=== PATIENT | male | born 1965 | race African-American/Black ===

== ENCOUNTER 2016-04-17 10:15 | Inpatient (IN) | payer OTHER ==
[2016-04-17 11:49] VITALS: BMI 26.8
--- NOTE | 2016-04-17 12:57 | HP ---
CIWA Score - CIWA Score Nausea/Vomitin-Mild Nausea/No Vomiting Muscle Tremors: 4-Moderate,w/Arms Extend Anxiety: 4-Mod. Anxious/Guarded Agitation: 4-Moderately Restless Paroxysmal Sweats: 3 Orientation: 0-Oriented Tacttile Disturbances: 0-None Auditory Disturbances: 0-None Visual Disturbances: 0-None Headache: 0-None Present CIWA-Ar Total Score: 16 Admission ROS BHS - HPI Chief Complaint: I am here to detox then go to rehab. Allergies/Adverse Reactions: Allergies Allergy/AdvReac Type Severity Reaction Status Date / Time Penicillins Allergy Intermediate Hives Verified 12/17/12 16:52 History of Present Illness: pt is a 50yr old male with a history of alcohol and crack/cocaine dependence seeking detox for treatment. Exam Limitations: No Limitations - Ebola screening Have you traveled outside of the country in the last 21 days: No Have you had contact with anyone from an Ebola affected area: No Have you been sick,other than usual withdrawal symptoms: No Do you have a fever: No - Review of Systems Constitutional: Chills, Diaphoresis, Night Sweats, Changes in sleep EENT: reports: Tearing Respiratory: reports: No Symptoms reported Cardiac: reports: No Symptoms Reported GI: reports: Poor Appetite, Poor Fluid Intake : reports: No Symptoms Reported Musculoskeletal: reports: No Symptoms Reported Integumentary: reports: Flushing, Sweating Neuro: reports: Headache, Tingling, Tremors Endocrine: reports: Excessive Sweating, Flushing, Intolerance to Cold, Intolerance to Heat Hematology: reports: No Symptoms Reported Psychiatric: reports: No Sypmtoms Reported, Judgement Intact, Mood/Affect Appropiate, Orientated x3, Agitated, Anxious Other Systems: Reviewed and Negative Patient History - Patient Medical History Hx Anemia: No Hx Asthma: Yes Hx Chronic Obstructive Pulmonary Disease (COPD): No Hx Cancer: No Hx Cardiac Disorders: No Hx Congestive Heart Failure: No Hx Hypertension: Yes Hx Hypercholesterolemia: No Hx Pacemaker: No HX Cerebrovascular Accident: No Hx Seizures: No Hx Dementia: No Hx Diabetes: No Hx Gastrointestinal Disorders: No Hx Liver Disease: No Hx Genitourinary Disorders: No Hx Sexually Transmitted Disorders: No Hx Renal Disease (ESRD): No Hx Thyroid Disease: No Hx Human Immunodeficiency Virus (HIV): No Hx Hepatitis C: No Hx Depression: No Hx Suicide Attempt: Yes (jumped off the roof in 1982) Hx Bipolar Disorder: No Hx Schizophrenia: No - Patient Surgical History Past Surgical History: Yes Hx Neurologic Surgery: No Hx Cataract Extraction: No Hx Cardiac Surgery: No Hx Lung Surgery: No Hx Breast Surgery: No Hx Breast Biopsy: No Hx Abdominal Surgery: No Hx Appendectomy: No Hx Cholecystectomy: No Hx Genitourinary Surgery: No Hx Section: No Hx Orthopedic Surgery: Yes (left middle mcp jt surgery ) Other Surgical History: Left Hand Surgery 10 yrs. ago Anesthesia Reaction: No - PPD History Previous Implant?: Yes Documented Results: Negative w/o proof Implanted On Prior [facility] Admission?: Yes PPD to be Administered?: Yes - Reproductive History Patient is a Female of Child Bearing Age (11 -55 yrs old): No - Smoking Cessation Smoking history: Current every day smoker Have you smoked in the past 12 months: Yes Aproximately how many cigarettes per day: 10 Cigars Per Day: 0 Hx Chewing Tobacco Use: No Initiated information on smoking cessation: Yes 'Breaking Loose' booklet given: 04/17/16 - Substance & Tx. History Hx Alcohol Use: Yes Hx Substance Use: Yes Substance Use Type: Alcohol, Cocaine Hx Substance Use Treatment: Yes - Substances Abused Crack Route: Smoking Frequency: 1-2 times per week Amount used: $50 Age of first use: 22 Date of Last Use: 04/15/16 Alcohol-vodka Route: Oral Frequency: Daily Amount used: 3 pts. Age of first use: 19 Date of Last Use: 04/22/16 Family Disease History - Family Disease History Family Disease History: Diabetes: Father, Mother Admission Physical Exam S - Vital Signs Vital Signs: Vital Signs - 24 hr 04/17/16 11:47 Temperature 96.9 F L Pulse Rate 80 Respiratory 18 Rate Blood Pressure 145/76 - Physical General Appearance: Yes: Appropriately Dressed, Mild Distress, Tremorous, Irritable, Sweating, Anxious HEENTM: Yes: Hearing grossly Normal, Normal Voice, Nasal Congestion Respiratory: Yes: Lungs Clear, Normal Breath Sounds, No Respiratory Distress Neck: Yes: No masses,lesions,Nodules Breast: Yes: Within Normal Limits Cardiology: Yes: Regular Rhythm, Regular Rate, S1, S2 Abdominal: Yes: Normal Bowel Sounds, Non Tender, Soft Genitourinary: Yes: Within Normal Limits Back: Yes: Normal Inspection Musculoskeletal: Yes: full range of Motion Extremities: Yes: Normal Capillary Refill, Normal Inspection, Tremors Neurological: Yes: Fully Oriented, Alert, Normal Response Integumentary: Yes: Normal Color, Diaphoresis Lymphatic: Yes: Within Normal Limits - Diagnostic (1) Alcohol dependence with uncomplicated withdrawal Current Visit: Yes Status: Chronic (2) Hypertension Current Visit: Yes Status: Chronic Qualifiers: Hypertension type: essential hypertension Qualified Code(s): I10 - Essential (primary) hypertension (3) Nicotine dependence Current Visit: Yes Status: Chronic Qualifiers: Nicotine product type: cigarettes Substance use status: uncomplicated Qualified Code(s): F17.210 - Nicotine dependence, cigarettes, uncomplicated (4) Asthma Current Visit: Yes Status: Chronic (5) Cocaine dependence Current Visit: Yes Status: Chronic Cleared for Admission [facility] - Detox or Rehab [facility] Level of Care: Medically Managed Detox Regimen/Protocol: Librium [facility] Breath Alcohol Content Breath Alcohol Content: 0 Urine Drug Screen - Results Drug Screen Negative: No Urine Drug Screen Results: THC-Marijuana, YVON-Cocaine, BZO-Benzodiazepines
[2016-04-17] MEDS ORDERED: MAGNESIUM CITRATE 300 ML BOTTLE PO PRN (13:02)
[2016-04-17] MEDS ORDERED: ACETAMINOPHEN 325 MG TABLET (FP) PO PRN (13:02)
[2016-04-17] MEDS ORDERED: MENTHOL/PHENOL 1 EACH UD MM PRN (13:02)
[2016-04-17] MEDS ORDERED: guaiFENesin/D-METHORPHAN HB 10 ML UNIT-DOSE CUPS PO PRN (13:02)
[2016-04-17] MEDS ORDERED: LOPERAMIDE HCL 2 MG CAPSULE PO PRN (13:02)
[2016-04-17] MEDS ORDERED: MAG HYDROX/AL HYDROX/SIMETH 30 ML UNIT-DOSE CUP PO PRN (13:02)
[2016-04-17] MEDS ORDERED: NICOTINE POLACRILEX 4 MG GUM BUC PRN (13:02)
[2016-04-17] MEDS ORDERED: IBUPROFEN 400 MG TABLET (FP) PO PRN (13:02)
[2016-04-17] MEDS ORDERED: MAGNESIUM HYDROX 2400MG/30ML ORAL SUSPENSION 30 ML CUP PO PRN (13:02)
[2016-04-17] MEDS ORDERED: chlordiazePOXIDE HCL 25 MG CAPSULE PO ONE (13:02)
[2016-04-17] MEDS ORDERED: hydrOXYzine PAMOATE 50 MG CAPSULE (FP) PO PRN (13:02)
[2016-04-17] MEDS ORDERED: chlordiazePOXIDE HCL 25 MG CAPSULE PO PRN (13:02)
[2016-04-17] MEDS ORDERED: P-EPHED 60MG/TRIPROLIDI 2.5MG TABLET PO PRN (13:02)
[2016-04-17] MEDS ORDERED: ALBUTEROL SO4 6.7 GM HFA INHALER IH PRN (13:04)
[2016-04-17] MEDS: chlordiazePOXIDE HCL 25 MG CAPSULE PO SCH ×2 (17:11→22:24)
[2016-04-17 17:46] LABS: URINE APPEARANCE CLEAR; URINE BILIRUBIN NEGATIVE (NEGATIVE); URINE BLOOD NEGATIVE (NEGATIVE); URINE COLOR YELLOW; URINE GLUCOSE (UA) NEGATIVE (NEGATIVE); URINE KETONE NEGATIVE (NEGATIVE); URINE NITRITE NEGATIVE (NEGATIVE); URINE PROTEIN NEGATIVE (NEGATIVE); URINE UROBILINOGEN 2.0 E.U/dl E.U./dl (0.2-1.0)
[2016-04-17 17:59] LABS: URINE LEUK ESTERASE TRACE (NEGATIVE)
[2016-04-17 18:16] LABS: URINE MUCUS RARE; URINE RBC <1 /hpf (0-3); URINE WBC 4 /hpf (3-5)
[2016-04-17] MEDS: THIAMINE HCL 100 MG TABLET (FP) PO SCH (22:24)
[2016-04-17] MEDS: diphenhydrAMINE HCL 50 MG CAPSULE PO PRN (22:24)
[2016-04-18] MEDS: chlordiazePOXIDE HCL 25 MG CAPSULE PO SCH ×4 (05:48→22:38)
[2016-04-18 10:45] LABS: MCH 30.3 pg (25.7-33.7); MCHC 32.3 g/dl (32.0-35.9); MEAN CELL VOLUME 93.6 fl (80-96); MEAN PLT VOLUME 9.3 fl (7.5-11.1); PLATELET COUNT 233 K/MM3 (134-434); RDW 14.2 % (11.9-15.9); WHITE BLOOD COUNT 5.3 K/mm3 (4.0-10.0)
[2016-04-18 10:47] LABS: URINE APPEARANCE SLCLOUDY; URINE BILIRUBIN NEGATIVE (NEGATIVE); URINE BLOOD NEGATIVE (NEGATIVE); URINE COLOR LTYELLOW; URINE GLUCOSE (UA) NEGATIVE (NEGATIVE); URINE KETONE NEGATIVE (NEGATIVE); URINE LEUK ESTERASE NEGATIVE (NEGATIVE); URINE NITRITE NEGATIVE (NEGATIVE); URINE PROTEIN NEGATIVE (NEGATIVE); URINE UROBILINOGEN NEGATIVE E.U./dl (0.2-1.0)
[2016-04-18 10:52] LABS: ALBUMIN 3.5 g/dl (3.4-5.0); BILIRUBIN,TOTAL 0.3 mg/dL (0.2-1.0); CALCIUM 8.7 mg/dL (8.5-10.1); CREATININE 1.4 mg/dL (0.7-1.3)
[2016-04-18] MEDS: PRENATAL VITAMINS W/ FOLIC ACID TABLET (FP) PO SCH (11:01)
[2016-04-18] MEDS: NICOTINE 21 MG/24 HOURS TOPICAL PATCH TD SCH (11:02)
[2016-04-18] MEDS: ASPIRIN 81 MG CHEWABLE TABLETS PO SCH (11:02)
[2016-04-18] MEDS: LISINOPRIL 5 MG TABLET (FP) PO SCH (11:40)
--- NOTE | 2016-04-18 12:06 | PN ---
[facility] CIWA - CIWA Score Nausea/Vomitin Muscle Tremors: 3 Anxiety: 3 Agitation: 2 Paroxysmal Sweats: 1-Minimal Palms Moist Orientation: 0-Oriented Tacttile Disturbances: 1-Very Mild Itch/Numbness Auditory Disturbances: 1-Very Mild Visual Disturbances: 1-Very Mild Sensitivity Headache: 2-Mild CIWA-Ar Total Score: 17 BHS Progress Note (SOAP) Subjective: ALERT,IRRITABLE,ANXIOUS,INTERRUPTED SLEEP,TREMOR Objective: 04/18/16 12:04 Vital Signs Temperature 98.2 F 04/18/16 10:02 Pulse Rate 82 04/18/16 10:02 Respiratory Rate 20 04/18/16 10:02 Blood Pressure 123/84 04/18/16 10:02 O2 Sat by Pulse Oximetry (%) EKG NSR INVERTED T IN V3,V4 NO CHEST PAIN,NO SOB,NO DIZZINESS Laboratory Last Values WBC 5.3 K/mm3 (4.0-10.0) 04/18/16 06:00 RBC 4.33 M/mm3 (4.00-5.60) 04/18/16 06:00 Hgb 13.1 GM/dL (11.7-16.9) 04/18/16 06:00 Hct 40.5 % (35.4-49) 04/18/16 06:00 MCV 93.6 fl (80-96) 04/18/16 06:00 MCHC 32.3 g/dl (32.0-35.9) 04/18/16 06:00 RDW 14.2 % (11.9-15.9) 04/18/16 06:00 Plt Count 233 K/MM3 (134-434) 04/18/16 06:00 MPV 9.3 fl (7.5-11.1) 04/18/16 06:00 Sodium 141 mmol/L (136-145) 04/18/16 06:00 Potassium 3.9 mmol/L (3.5-5.1) 04/18/16 06:00 Chloride 105 mmol/L (98-107) 04/18/16 06:00 Carbon Dioxide 24 mmol/L (21-32) 04/18/16 06:00 Anion Gap 12 (8-16) 04/18/16 06:00 BUN 18 mg/dL (7-18) 04/18/16 06:00 Creatinine 1.4 mg/dL (0.7-1.3) H 04/18/16 06:00 Creat Clearance w eGFR 53.86 (>60) 04/18/16 06:00 Random Glucose 181 mg/dL (74-106) H D 04/18/16 06:00 Calcium 8.7 mg/dL (8.5-10.1) 04/18/16 06:00 Total Bilirubin 0.3 mg/dL (0.2-1.0) D 04/18/16 06:00 AST 22 U/L (15-37) D 04/18/16 06:00 ALT 30 U/L (12-78) D 04/18/16 06:00 Alkaline Phosphatase 81 U/L (45-117) D 04/18/16 06:00 Total Protein 7.0 g/dl (6.4-8.2) 04/18/16 06:00 Albumin 3.5 g/dl (3.4-5.0) 04/18/16 06:00 Urine Color Ltyellow 04/18/16 08:40 Urine Appearance Slcloudy 04/18/16 08:40 Urine pH 7.0 (5.0-8.0) D 04/18/16 08:40 Ur Specific [place] 1.014 (1.001-1.035) 04/18/16 08:40 Urine Protein Negative (NEGATIVE) 04/18/16 08:40 Urine Glucose (UA) Negative (NEGATIVE) 04/18/16 08:40 Urine Ketones Negative (NEGATIVE) 04/18/16 08:40 Urine Blood Negative (NEGATIVE) 04/18/16 08:40 Urine Nitrite Negative (NEGATIVE) 04/18/16 08:40 Urine Bilirubin Negative (NEGATIVE) 04/18/16 08:40 Urine Urobilinogen Negative E.U./dl (0.2-1.0) 04/18/16 08:40 Ur Leukocyte Esterase Negative (NEGATIVE) 04/18/16 08:40 Urine RBC <1 /hpf (0-3) 04/17/16 14:00 Urine WBC 4 /hpf (3-5) 04/17/16 14:00 Ur Epithelial Cells Rare /hpf (FEW) 04/17/16 14:00 Urine Mucus Rare 04/17/16 14:00 Assessment: 04/18/16 12:05 WITHDRAWAL SYMPTOM 04/18/16 12:07 Plan: CONTINUE DETOX,INITIAL GLUCOSE 181,BGM MONITORING
[2016-04-18 14:12] LABS: HIV 1 & 2 AB NEGATIVE; HIV 1 AGp24 NEGATIVE
--- NOTE | 2016-04-18 17:55 | CONSULT ---
[facility] Psychiatric Consult - Data Date of interview: 04/18/16 Admission source: [facility] Identifying data: Readmission to [facility] for this 50 y/o AA male seeking detox treatment on for alcohol and cocaine dependence.Patient is ,a father of three,homeless,unemployed and supported on SSI benefits. Substance Abuse History: - Smoking Cessation. Smoking history: Current every day smoker. Have you smoked in the past 12 months: Yes. Aproximately how many cigarettes per day: 10. Cigars Per Day: 0. Hx Chewing Tobacco Use: No. Initiated information on smoking cessation: Yes. 'Breaking Loose' booklet given : 04/17/16. - Substance & Tx. History. Hx Alcohol Use: Yes. Hx Substance Use : Yes. Substance Use Type: Alcohol, Cocaine. Hx Substance Use Treatment: Yes. - Substances Abused. Crack. Route: Smoking. Frequency: 1-2 times per week. Amount used: $50. Age of first use: 22. Date of Last Use: 04/15/16. * * Alcohol-vodka. Route: Oral. Frequency: Daily. Amount used: 3 pts. Age of first use: 19. Date of Last Use: 04/22/16. Confirmed by the patient in this interview. Medical History: Hypertension,bronchial asthma and a history of orthosurgery ( fracture of left middle finger). Psychiatric History: Patient admits to an extensive history of psychiatric illness.He reports multiple psychiatric hospitalizations,including stays at the [facility].Mr Beaver is also known to [facility].He gets his psychiatric outpatient services at [facility].Medications : seroquel 300 mg po hs + trazodone 100 mg po hs.Non compliant with medications as per self-report (has not taken medications for more than one month) .Diagnosed with Schizophrenia,paranoid type.Noted report of of a suicide attempt (jump off a roof) in 1982. Physical/Sexual Abuse/Trauma History: Patient denies. Additional Comment: Urine Drug Screen Results: THC-Marijuana, YVON-Cocaine, BZO- Benzodiazepines.Noted. Mental Status Exam - Mental Status Exam Alert and Oriented to: Time, Place, Person Cognitive Function: Good Mood: Hopeful Affect: Normal Range Patient Behavior: Appropriate, Cooperative Speech Pattern: Clear Voice Loudness: Normal Thought Process: Goal Oriented Thought Disorder: Not Present Hallucinations: Denies Suicidal Ideation: Denies Homicidal Ideation: Denies Insight/Judgement: Poor Sleep: Poorly, Difficulty falling asleep Appetite: Good Muscle strength/Tone: Normal Gait/Station: Normal Psychiatric Findings - Problem List ([place] 1, 2,3) (1) Alcohol dependence with uncomplicated withdrawal Current Visit: Yes Status: Acute (2) Cocaine dependence Current Visit: Yes Status: Acute (3) Nicotine dependence Current Visit: Yes Status: Acute Qualifiers: Nicotine product type: cigarettes Substance use status: uncomplicated Qualified Code(s): F17.210 - Nicotine dependence, cigarettes, uncomplicated (4) Schizophrenia, paranoid type Current Visit: Yes Status: Chronic (5) Asthma Current Visit: Yes Status: Chronic (6) Hypertension Current Visit: Yes Status: Chronic Qualifiers: Hypertension type: essential hypertension Qualified Code(s): I10 - Essential (primary) hypertension (7) Insomnia Current Visit: Yes Status: Chronic - Initial Treatment Plan Initial Treatment Plan: Psychoeducation.Detoxification.seroquel 200 mg po hs + trazodone 50 mg po hs.Side effects/benefits discussed with the patient.Made aware of the risk of priapism (trazodone).Instructed to alert MD/RN if painful/ prolonged erection.Patient agrees with this careplan.Observation.
[2016-04-18] MEDS: THIAMINE HCL 100 MG TABLET (FP) PO SCH (22:38)
[2016-04-18] MEDS: QUEtiapine FUMARATE 200 MG TABLET PO SCH (22:38)
[2016-04-19] MEDS: chlordiazePOXIDE HCL 25 MG CAPSULE PO SCH ×2 (05:51→10:45)
[2016-04-19] MEDS: ASPIRIN 81 MG CHEWABLE TABLETS PO SCH (10:44)
[2016-04-19] MEDS: LISINOPRIL 5 MG TABLET (FP) PO SCH (10:44)
[2016-04-19] MEDS: PRENATAL VITAMINS W/ FOLIC ACID TABLET (FP) PO SCH (10:44)
[2016-04-19] MEDS: NICOTINE 21 MG/24 HOURS TOPICAL PATCH TD SCH (10:45)
--- NOTE | 2016-04-19 11:30 | PN ---
[facility] CIWA - CIWA Score Nausea/Vomitin Muscle Tremors: 3 Anxiety: 3 Agitation: 2 Paroxysmal Sweats: 1-Minimal Palms Moist Orientation: 0-Oriented Tacttile Disturbances: 1-Very Mild Itch/Numbness Auditory Disturbances: 1-Very Mild Visual Disturbances: 1-Very Mild Sensitivity Headache: 2-Mild CIWA-Ar Total Score: 17 BHS Progress Note (SOAP) Subjective: ALERT,IRRITABLE,ANXIOUS,INTERRUPTED SLEEP,TREMOR Objective: 04/19/16 11:28 Vital Signs Temperature 97.3 F L 04/19/16 10:41 Pulse Rate 105 H 04/19/16 10:41 Respiratory Rate 18 04/19/16 10:41 Blood Pressure 141/100 04/19/16 10:41 O2 Sat by Pulse Oximetry (%) 04/19/16 11:29 Laboratory Last Values WBC 5.3 K/mm3 (4.0-10.0) 04/18/16 06:00 RBC 4.33 M/mm3 (4.00-5.60) 04/18/16 06:00 Hgb 13.1 GM/dL (11.7-16.9) 04/18/16 06:00 Hct 40.5 % (35.4-49) 04/18/16 06:00 MCV 93.6 fl (80-96) 04/18/16 06:00 MCHC 32.3 g/dl (32.0-35.9) 04/18/16 06:00 RDW 14.2 % (11.9-15.9) 04/18/16 06:00 Plt Count 233 K/MM3 (134-434) 04/18/16 06:00 MPV 9.3 fl (7.5-11.1) 04/18/16 06:00 Sodium 141 mmol/L (136-145) 04/18/16 06:00 Potassium 3.9 mmol/L (3.5-5.1) 04/18/16 06:00 Chloride 105 mmol/L (98-107) 04/18/16 06:00 Carbon Dioxide 24 mmol/L (21-32) 04/18/16 06:00 Anion Gap 12 (8-16) 04/18/16 06:00 BUN 18 mg/dL (7-18) 04/18/16 06:00 Creatinine 1.4 mg/dL (0.7-1.3) H 04/18/16 06:00 Creat Clearance w eGFR 53.86 (>60) 04/18/16 06:00 POC Glucometer 111 UNITS (()) 04/19/16 06:55 Random Glucose 181 mg/dL (74-106) H D 04/18/16 06:00 Calcium 8.7 mg/dL (8.5-10.1) 04/18/16 06:00 Total Bilirubin 0.3 mg/dL (0.2-1.0) D 04/18/16 06:00 AST 22 U/L (15-37) D 04/18/16 06:00 ALT 30 U/L (12-78) D 04/18/16 06:00 Alkaline Phosphatase 81 U/L (45-117) D 04/18/16 06:00 Total Protein 7.0 g/dl (6.4-8.2) 04/18/16 06:00 Albumin 3.5 g/dl (3.4-5.0) 04/18/16 06:00 Urine Color Ltyellow 04/18/16 08:40 Urine Appearance Slcloudy 04/18/16 08:40 Urine pH 7.0 (5.0-8.0) D 04/18/16 08:40 Ur Specific [place] 1.014 (1.001-1.035) 04/18/16 08:40 Urine Protein Negative (NEGATIVE) 04/18/16 08:40 Urine Glucose (UA) Negative (NEGATIVE) 04/18/16 08:40 Urine Ketones Negative (NEGATIVE) 04/18/16 08:40 Urine Blood Negative (NEGATIVE) 04/18/16 08:40 Urine Nitrite Negative (NEGATIVE) 04/18/16 08:40 Urine Bilirubin Negative (NEGATIVE) 04/18/16 08:40 Urine Urobilinogen Negative E.U./dl (0.2-1.0) 04/18/16 08:40 Ur Leukocyte Esterase Negative (NEGATIVE) 04/18/16 08:40 Urine RBC <1 /hpf (0-3) 04/17/16 14:00 Urine WBC 4 /hpf (3-5) 04/17/16 14:00 Ur Epithelial Cells Rare /hpf (FEW) 04/17/16 14:00 Urine Mucus Rare 04/17/16 14:00 RPR Titer Nonreactive (NONREACTIVE) 04/18/16 06:00 HIV 1&2 Antibody Screen Negative 04/17/16 12:00 HIV P24 Antigen Negative 04/17/16 12:00 Assessment: 04/19/16 11:29 WITHDRAWAL SYMPTOM Plan: CONTINUE DETOX
[2016-04-19] MEDS: chlordiazePOXIDE 5 MG CAPSULE PO SCH ×2 (18:00→22:50)
[2016-04-19] MEDS: THIAMINE HCL 100 MG TABLET (FP) PO SCH (22:50)
[2016-04-19] MEDS: QUEtiapine FUMARATE 200 MG TABLET PO SCH (22:50)
[2016-04-20] MEDS: chlordiazePOXIDE 5 MG CAPSULE PO SCH ×2 (06:00→10:12)
[2016-04-20] MEDS: NICOTINE 21 MG/24 HOURS TOPICAL PATCH TD SCH (10:11)
[2016-04-20] MEDS: PRENATAL VITAMINS W/ FOLIC ACID TABLET (FP) PO SCH (10:12)
[2016-04-20] MEDS: LISINOPRIL 5 MG TABLET (FP) PO SCH (10:12)
[2016-04-20] MEDS: ASPIRIN 81 MG CHEWABLE TABLETS PO SCH (10:12)
--- NOTE | 2016-04-20 10:59 | PN ---
S Progress Note (SOAP) Subjective: ALERT,IRRITABLE,ANXIOUS,INTERRUPTED SLEEP Objective: 04/20/16 10:57 Vital Signs Temperature 97 F L 04/20/16 10:15 Pulse Rate 88 04/20/16 10:15 Respiratory Rate 16 04/20/16 10:15 Blood Pressure 144/63 04/20/16 10:15 O2 Sat by Pulse Oximetry (%) Assessment: WITHDRAWAL SYMPTOM Plan: CONTINUE DETOX,DISCHARGE IN AM
--- NOTE | 2016-04-20 14:06 | EKG ---
Test Reason : Blood Pressure : / mmHG Vent. Rate : 068 BPM Atrial Rate : 068 BPM P-R Int : 182 ms QRS Dur : 094 ms QT Int : 404 ms P-R-T Axes : 051 038 051 degrees QTc Int : 429 ms NORMAL SINUS RHYTHM POSSIBLE LEFT ATRIAL ENLARGEMENT NONSPECIFIC T WAVE ABNORMALITY ABNORMAL ECG NO PREVIOUS ECGS AVAILABLE Confirmed by LELAND GRIMES MD ([id number]) on 04/20/2016 2:05:34 PM Referred By: Bryan Sanches Confirmed By:LELAND GRIMES MD
[2016-04-20] MEDS: chlordiazePOXIDE HCL 10 MG CAPSULE PO SCH ×2 (17:21→22:21)
[2016-04-20] MEDS: QUEtiapine FUMARATE 200 MG TABLET PO SCH (22:21)
[2016-04-20] MEDS: THIAMINE HCL 100 MG TABLET (FP) PO SCH (22:21)
[2016-04-20] MEDS: diphenhydrAMINE HCL 50 MG CAPSULE PO PRN (22:21)
[2016-04-21] MEDS: chlordiazePOXIDE HCL 10 MG CAPSULE PO SCH (06:20)
[2016-04-21 06:46] VITALS: BP 96/60; PULSE 73; TEMP 97.7
--- NOTE | 2016-04-21 08:56 | PN ---
S Progress Note (SOAP) Subjective: alert,no complaint Objective: 04/21/16 08:55 Vital Signs Temperature 97.7 F 04/21/16 06:46 Pulse Rate 73 04/21/16 06:46 Respiratory Rate 18 04/21/16 06:46 Blood Pressure 96/60 04/21/16 06:46 O2 Sat by Pulse Oximetry (%) Assessment: 04/21/16 08:55 detox completed,no withdrawal symptom Plan: discharge today,follow up with after care program as arrangement
--- NOTE | 2016-04-21 08:57 | DS ---
[facility] Detox Discharge Summary Admission Date: 04/17/16 Discharge Date: 04/21/16 - History Present History: Alcohol Dependence, Cocaine Dependence Additional Comments: follow up with after [facility] program as arrangement and pmd for medical problem Pertinent Past History: asthma hypertension - Physical Exam Results Vital Signs: Vital Signs Temperature 97.7 F 04/21/16 06:46 Pulse Rate 73 04/21/16 06:46 Respiratory Rate 18 04/21/16 06:46 Blood Pressure 96/60 04/21/16 06:46 O2 Sat by Pulse Oximetry (%) Pertinent Admission Physical Exam Findings: withdrawal symptom - Treatment Hospital Course: Detox Protocol Followed, Detoxed Safely, Responded well, Discharged Condition Good, Rehab Referral Accepted Patient has Accepted a [facility] Referral [facility] - Medication Discharge Medications: Ambulatory Orders Aspirin [ASA -] 81 mg PO DAILY #30 tab.chew 12/21/12 Lisinopril [Prinivil] 5 mg PO DAILY #30 tablet 12/21/12 Albuterol Sulfate [Proventil HFA Inhaler -] 2 inh PO Q4H PRN 04/17/16 Quetiapine Fumarate [Seroquel -] 200 mg PO HS #30 tab 04/18/16 - AMA Did Patient Leave Against Medical Advice: No
== END 2016-04-21 09:12 | disposition home or self-care (01) | DRG 774 ==
LOC: YASAS 10:15 → Y6N 13:05
PROVIDERS: ADMIT Internal Medicine; ATTEND Internal Medicine
PROC: HZ2ZZZZ Detoxification Services for Substance Abuse Treatment (ICD-10-PCS; principal; 2016-04-21)
DX: F10.230 Alcohol dependence with withdrawal, uncomplicated (principal); F14.20 Cocaine dependence, uncomplicated; F17.210 Nicotine dependence, cigarettes, uncomplicated; F20.0 Paranoid schizophrenia; G47.00 Insomnia, unspecified; I10 Essential (primary) hypertension; J45.909 Unspecified asthma, uncomplicated
CPT/HCPCS: 36415; 71020-TC; 80053; 81003; 81015; 85027; 86593; 87389; 93005; 93010

== ENCOUNTER 2016-10-02 10:00 | Inpatient (IN) | payer OTHER ==
[2016-10-02 13:55] VITALS: BMI 25.7
--- NOTE | 2016-10-02 16:31 | HP ---
Admission [facility] Chief Complaint: i am here for rehab from alcohol,cocaine and marijuana Allergies/Adverse Reactions: Allergies Allergy/AdvReac Type Severity Reaction Status Date / Time Penicillins Allergy Intermediate Hives Verified 10/02/16 15:15 mri dye Allergy Uncoded 10/02/16 16:27 History of Present Illness: this 51 years old male with alcohol,cocaine and marijuana dependence,seeking rehab,[facility] 09/[facility]16 to 10/02/16 weight loss nicotine dependence paranoid schizophrenia and depression longest period of sobriety 5 years Exam Limitations: No Limitations - Ebola screening Have you traveled outside of the country in the last 21 days: No Have you had contact with anyone from an Ebola affected area: No Have you been sick,other than usual withdrawal symptoms: No Do you have a fever: No - Review of Systems Constitutional: Loss of Appetite, Malaise, Night Sweats, Changes in sleep, Weakness, Unintentional Wgt. Loss EENT: reports: No Symptoms Reported Respiratory: reports: No Symptoms reported, Other (asthma) Cardiac: reports: No Symptoms Reported GI: reports: No Symptoms Reported : reports: No Symptoms Reported Musculoskeletal: reports: No Symptoms Reported Integumentary: reports: No Symptoms Reported Neuro: reports: No Symptoms reported Endocrine: reports: No Symptoms Reported Hematology: reports: No Symptoms Reported Psychiatric: reports: Judgement Intact, Mood/Affect Appropiate, Orientated x3 ( paranoid schizophrenia,depression), other Patient History - Patient Medical History Hx Anemia: No Hx Asthma: Yes (on albuterol inhaler) Hx Chronic Obstructive Pulmonary Disease (COPD): No Hx Cancer: No Hx Cardiac Disorders: No Hx Congestive Heart Failure: No Hx Hypertension: Yes (non compliance) Hx Hypercholesterolemia: Yes (no med) Hx Pacemaker: No HX Cerebrovascular Accident: No Hx Seizures: No Hx Dementia: No Hx Diabetes: No Hx Gastrointestinal Disorders: No Hx Liver Disease: No Hx Genitourinary Disorders: No Hx Sexually Transmitted Disorders: No Hx Renal Disease (ESRD): No Hx Thyroid Disease: No Hx Human Immunodeficiency Virus (HIV): No Hx Hepatitis C: No Hx Depression: Yes Hx Suicide Attempt: Yes (hanged self in 2009) Hx Bipolar Disorder: No Hx Schizophrenia: Yes (paranoid schizophrenia) Other Medical History: no suicidal,no homicial , - Patient Surgical History Past Surgical History: Yes Hx Neurologic Surgery: No Hx Cataract Extraction: No Hx Cardiac Surgery: No Hx Lung Surgery: No Hx Breast Surgery: No Hx Breast Biopsy: No Hx Abdominal Surgery: No Hx Appendectomy: No Hx Cholecystectomy: No Hx Genitourinary Surgery: No Hx Section: No Hx Orthopedic Surgery: Yes (left middle mcp jt surgery ) Other Surgical History: Left Hand Surgery 10 yrs. ago Anesthesia Reaction: No - PPD History Previous Implant?: Yes Documented Results: Positive w/o proof Implanted On Prior [facility] Admission?: Yes Date: 07/16/12 Results: 0 mm PPD to be Administered?: No - Smoking Cessation Smoking history: Current every day smoker Have you smoked in the past 12 months: Yes Aproximately how many cigarettes per day: 10 Cigars Per Day: 0 Hx Chewing Tobacco Use: No Initiated information on smoking cessation: Yes 'Breaking Loose' booklet given: 10/02/16 - Substance & Tx. History Hx Alcohol Use: Yes Hx Substance Use: Yes Substance Use Type: Alcohol, Cocaine, Marijuana Hx [facility]stance [facility] - Substances Abused Crack Route: Smoking Frequency: 1-2 times per week Amount used: $40 Age of first use: 23 Date of Last Use: 09/18/16 Alcohol-vodka/beer Route: Oral Frequency: 1-2 times per week Amount used: 1 pt./2 (12 oz.) Age of first use: 19 Date of Last Use: 09/28/16 Marijuana Route: Smoking Frequency: 1-2 times per week Amount used: $25 Age of first use: 16 Date of Last Use: 09/30/16 Family Disease History - Family Disease History Family History: Denies Family Disease History: Diabetes: Father, Mother Admission Physical Exam BHS - Vital Signs Vital Signs: Vital Signs - 24 hr 10/02/16 13:48 Temperature 96.2 F L Pulse Rate 64 Respiratory 20 Rate Blood Pressure 137/69 - Physical General Appearance: Yes: Within Normal Limits HEENTM: Yes: Normal ENT Inspection, DORIAN, Pharynx Normal Respiratory: Yes: Lungs Clear, Normal Breath Sounds, No Respiratory Distress Neck: Yes: Within Normal Limits, Supple, Trachea in good position Breast: Yes: Within Normal Limits Cardiology: Yes: Within Normal Limits, Regular Rhythm, Regular Rate, S1, S2 Abdominal: Yes: Within Normal Limits, Normal Bowel Sounds, Non Tender, Flat, Soft Genitourinary: Yes: Within Normal Limits Back: Yes: Within Normal Limits Musculoskeletal: Yes: Within Normal Limits Extremities: Yes: Within Normal Limits, Other (deformity left midle finger) Neurological: Yes: supervisor wet end II-XII NML intact, Fully Oriented, Alert, Motor Strength 5/5 Integumentary: Yes: Within Normal Limits Lymphatic: Yes: Within Normal Limits - Diagnostic (1) Cocaine dependence Current Visit: No Status: Acute (2) Asthma Current Visit: No Status: Chronic (3) Hypertension Current Visit: No Status: Chronic Qualifiers: Hypertension type: essential hypertension Qualified Code(s): I10 - Essential (primary) hypertension (4) Insomnia Current Visit: No Status: Chronic (5) Schizophrenia, paranoid type Current Visit: No Status: Chronic (6) Alcohol dependence Current Visit: Yes Status: Acute (7) Cannabis dependence Current Visit: Yes Status: Acute Cleared for Admission [facility] - Detox or Rehab Claeared for Rehab Admission: Yes [facility] Breath Alcohol Content Breath Alcohol Content: 0 Urine Drug Screen - Results Drug Screen Negative: No Urine Drug Screen Results: THC-Marijuana, YVON-Cocaine, BZO-Benzodiazepines
[2016-10-02] MEDS ORDERED: P-EPHED 60MG/TRIPROLIDI 2.5MG TABLET PO PRN (16:44)
[2016-10-02] MEDS ORDERED: MENTHOL/PHENOL 1 EACH UD MM PRN (16:44)
[2016-10-02] MEDS ORDERED: ACETAMINOPHEN 325 MG TABLET (FP) PO PRN (16:44)
[2016-10-02] MEDS ORDERED: LOPERAMIDE HCL 2 MG CAPSULE PO PRN (16:44)
[2016-10-02] MEDS ORDERED: IBUPROFEN 400 MG TABLET (FP) PO PRN (16:44)
[2016-10-02] MEDS ORDERED: MAG HYDROX/AL HYDROX/SIMETH 30 ML UNIT-DOSE CUP PO PRN (16:44)
[2016-10-02] MEDS ORDERED: MAGNESIUM CITRATE 300 ML BOTTLE PO PRN (16:44)
[2016-10-02] MEDS ORDERED: diphenhydrAMINE HCL 50 MG CAPSULE PO PRN (16:44)
[2016-10-02] MEDS ORDERED: hydrOXYzine PAMOATE 50 MG CAPSULE (FP) PO PRN (16:44)
[2016-10-02] MEDS ORDERED: MAGNESIUM HYDROX 2400MG/30ML ORAL SUSPENSION 30 ML CUP PO PRN (16:44)
[2016-10-02] MEDS ORDERED: guaiFENesin/D-METHORPHAN HB 10 ML UNIT-DOSE CUPS PO PRN (16:44)
[2016-10-02] MEDS ORDERED: ALBUTEROL SO4 6.7 GM HFA INHALER IH PRN (16:49)
[2016-10-02] MEDS: LISINOPRIL 5 MG TABLET (FP) PO SCH (20:04)
[2016-10-02] MEDS: NICOTINE 21 MG/24 HOURS TOPICAL PATCH TD SCH (20:04)
[2016-10-02] MEDS: ASPIRIN 81 MG CHEWABLE TABLETS PO SCH (20:04)
[2016-10-02] MEDS: THIAMINE HCL 100 MG TABLET (FP) PO SCH (21:17)
[2016-10-02] MEDS: QUEtiapine FUMARATE 200 MG TABLET PO SCH (21:17)
[2016-10-02 22:34] LABS: URINE APPEARANCE CLEAR; URINE BILIRUBIN NEGATIVE (NEGATIVE); URINE BLOOD NEGATIVE (NEGATIVE); URINE COLOR YELLOW; URINE GLUCOSE (UA) NEGATIVE (NEGATIVE); URINE KETONE NEGATIVE (NEGATIVE); URINE LEUK ESTERASE NEGATIVE (NEGATIVE); URINE NITRITE NEGATIVE (NEGATIVE); URINE PROTEIN NEGATIVE (NEGATIVE)
[2016-10-03] MEDS: LISINOPRIL 5 MG TABLET (FP) PO SCH (09:45)
[2016-10-03] MEDS: PARoxetine HCL 20 MG TABLET (FP) PO SCH (09:45)
[2016-10-03] MEDS: ASPIRIN 81 MG CHEWABLE TABLETS PO SCH (09:45)
[2016-10-03] MEDS: PRENATAL VITAMINS W/ FOLIC ACID TABLET (FP) PO SCH (09:45)
[2016-10-03] MEDS: NICOTINE 21 MG/24 HOURS TOPICAL PATCH TD SCH (09:46)
[2016-10-03 11:00] LABS: ALBUMIN 2.9 g/dl (3.4-5.0); ANION GAP 8 (8-16); CALCIUM 8.2 mg/dL (8.5-10.1); CO2 25 mmol/L (21-32); GLUCOSE,RANDOM 144 mg/dL (74-106); SGOT/AST 15 U/L (15-37); SGPT/ALT 23 U/L (12-78)
[2016-10-03 11:02] LABS: ALK PHOS 68 U/L (45-117); BILIRUBIN,TOTAL 0.3 mg/dL (0.2-1.0); CREATININE 1.1 mg/dL (0.7-1.3); TOT PROT 6.3 g/dl (6.4-8.2)
[2016-10-03 11:04] LABS: MCH 30.2 pg (25.7-33.7); MCHC 32.9 g/dl (32.0-35.9); MEAN CELL VOLUME 91.7 fl (80-96); MEAN PLT VOLUME 8.7 fl (7.5-11.1); PLATELET COUNT 255 K/MM3 (134-434); RDW 13.6 % (11.9-15.9); WHITE BLOOD COUNT 3.9 K/mm3 (4.0-10.0)
[2016-10-03 11:37] LABS: HIV 1 & 2 AB NEGATIVE; HIV 1 AGp24 NEGATIVE
[2016-10-03] MEDS: THIAMINE HCL 100 MG TABLET (FP) PO SCH (21:15)
[2016-10-03] MEDS: QUEtiapine FUMARATE 200 MG TABLET PO SCH (21:15)
[2016-10-04] MEDS: LISINOPRIL 5 MG TABLET (FP) PO SCH (09:31)
[2016-10-04] MEDS: ASPIRIN 81 MG CHEWABLE TABLETS PO SCH (09:31)
[2016-10-04] MEDS: PARoxetine HCL 20 MG TABLET (FP) PO SCH (09:31)
[2016-10-04] MEDS: PRENATAL VITAMINS W/ FOLIC ACID TABLET (FP) PO SCH (09:31)
[2016-10-04] MEDS: NICOTINE 21 MG/24 HOURS TOPICAL PATCH TD SCH (09:32)
[2016-10-04] MEDS: THIAMINE HCL 100 MG TABLET (FP) PO SCH (21:09)
[2016-10-04] MEDS: QUEtiapine FUMARATE 200 MG TABLET PO SCH (21:09)
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
[2016-10-05] MEDS: NICOTINE 21 MG/24 HOURS TOPICAL PATCH TD SCH (09:23)
[2016-10-05] MEDS: PARoxetine HCL 20 MG TABLET (FP) PO SCH (09:23)
[2016-10-05] MEDS: PRENATAL VITAMINS W/ FOLIC ACID TABLET (FP) PO SCH (09:23)
[2016-10-05] MEDS: ASPIRIN 81 MG CHEWABLE TABLETS PO SCH (09:23)
[2016-10-05] MEDS: LISINOPRIL 5 MG TABLET (FP) PO SCH (10:25)
--- NOTE | 2016-10-05 11:32 | EKG ---
Test Reason : Blood Pressure : / mmHG Vent. Rate : 072 BPM Atrial Rate : 072 BPM P-R Int : 150 ms QRS Dur : 090 ms QT Int : 426 ms P-R-T Axes : 057 047 048 degrees QTc Int : 466 ms NORMAL SINUS RHYTHM POSSIBLE LEFT ATRIAL ENLARGEMENT NONSPECIFIC T WAVE ABNORMALITY PROLONGED QT ABNORMAL ECG WHEN COMPARED WITH ECG OF 17-APR-2016 14:50, NONSPECIFIC T WAVE ABNORMALITY NO LONGER EVIDENT IN LATERAL LEADS Confirmed by XIOMY JAMA, DEVAN ([id number]) on 10/05/2016 11:31:53 AM Referred By: Latrice YOUNGBLOOD Confirmed By:DEVAN STAUFFER MD
[2016-10-05] MEDS: THIAMINE HCL 100 MG TABLET (FP) PO SCH (21:22)
[2016-10-05] MEDS: QUEtiapine FUMARATE 200 MG TABLET PO SCH (21:22)
[2016-10-06] MEDS: PRENATAL VITAMINS W/ FOLIC ACID TABLET (FP) PO SCH (09:50)
[2016-10-06] MEDS: ASPIRIN 81 MG CHEWABLE TABLETS PO SCH (09:50)
[2016-10-06] MEDS: LISINOPRIL 5 MG TABLET (FP) PO SCH (09:50)
[2016-10-06] MEDS: PARoxetine HCL 20 MG TABLET (FP) PO SCH (09:50)
[2016-10-06] MEDS: NICOTINE 21 MG/24 HOURS TOPICAL PATCH TD SCH (09:51)
[2016-10-06] MEDS: THIAMINE HCL 100 MG TABLET (FP) PO SCH (21:57)
[2016-10-06] MEDS: QUEtiapine FUMARATE 200 MG TABLET PO SCH (21:57)
[2016-10-07] MEDS: ASPIRIN 81 MG CHEWABLE TABLETS PO SCH (09:55)
[2016-10-07] MEDS: LISINOPRIL 5 MG TABLET (FP) PO SCH (09:55)
[2016-10-07] MEDS: PRENATAL VITAMINS W/ FOLIC ACID TABLET (FP) PO SCH (09:55)
[2016-10-07] MEDS: PARoxetine HCL 20 MG TABLET (FP) PO SCH (09:55)
[2016-10-07] MEDS: NICOTINE 21 MG/24 HOURS TOPICAL PATCH TD SCH (09:56)
[2016-10-07] MEDS: THIAMINE HCL 100 MG TABLET (FP) PO SCH (21:42)
[2016-10-07] MEDS: QUEtiapine FUMARATE 200 MG TABLET PO SCH (21:42)
[2016-10-08] MEDS: LISINOPRIL 5 MG TABLET (FP) PO SCH (10:01)
[2016-10-08] MEDS: ASPIRIN 81 MG CHEWABLE TABLETS PO SCH (10:01)
[2016-10-08] MEDS: PRENATAL VITAMINS W/ FOLIC ACID TABLET (FP) PO SCH (10:01)
[2016-10-08] MEDS: PARoxetine HCL 20 MG TABLET (FP) PO SCH (10:01)
[2016-10-08] MEDS: NICOTINE 21 MG/24 HOURS TOPICAL PATCH TD SCH (10:02)
[2016-10-08] MEDS: QUEtiapine FUMARATE 200 MG TABLET PO SCH (21:20)
[2016-10-08] MEDS: THIAMINE HCL 100 MG TABLET (FP) PO SCH (21:20)
[2016-10-09] MEDS: LISINOPRIL 5 MG TABLET (FP) PO SCH (09:27)
[2016-10-09] MEDS: NICOTINE 21 MG/24 HOURS TOPICAL PATCH TD SCH (09:27)
[2016-10-09] MEDS: PRENATAL VITAMINS W/ FOLIC ACID TABLET (FP) PO SCH (09:27)
[2016-10-09] MEDS: PARoxetine HCL 20 MG TABLET (FP) PO SCH (09:27)
[2016-10-09] MEDS: ASPIRIN 81 MG CHEWABLE TABLETS PO SCH (09:27)
[2016-10-09] MEDS: QUEtiapine FUMARATE 200 MG TABLET PO SCH (21:40)
[2016-10-09] MEDS: THIAMINE HCL 100 MG TABLET (FP) PO SCH (21:41)
[2016-10-10] MEDS: ASPIRIN 81 MG CHEWABLE TABLETS PO SCH (10:08)
[2016-10-10] MEDS: LISINOPRIL 5 MG TABLET (FP) PO SCH (10:08)
[2016-10-10] MEDS: PARoxetine HCL 20 MG TABLET (FP) PO SCH (10:08)
[2016-10-10] MEDS: NICOTINE 21 MG/24 HOURS TOPICAL PATCH TD SCH (10:08)
[2016-10-10] MEDS: PRENATAL VITAMINS W/ FOLIC ACID TABLET (FP) PO SCH (10:08)
[2016-10-10] MEDS: THIAMINE HCL 100 MG TABLET (FP) PO SCH (22:15)
[2016-10-10] MEDS: QUEtiapine FUMARATE 200 MG TABLET PO SCH (22:15)
[2016-10-11] MEDS: LISINOPRIL 5 MG TABLET (FP) PO SCH (09:50)
[2016-10-11] MEDS: PRENATAL VITAMINS W/ FOLIC ACID TABLET (FP) PO SCH (09:50)
[2016-10-11] MEDS: ASPIRIN 81 MG CHEWABLE TABLETS PO SCH (09:50)
[2016-10-11] MEDS: PARoxetine HCL 20 MG TABLET (FP) PO SCH (09:50)
[2016-10-11] MEDS: NICOTINE 21 MG/24 HOURS TOPICAL PATCH TD SCH (09:51)
[2016-10-11] MEDS: QUEtiapine FUMARATE 200 MG TABLET PO SCH (21:40)
[2016-10-11] MEDS: THIAMINE HCL 100 MG TABLET (FP) PO SCH (21:40)
[2016-10-12] MEDS: PRENATAL VITAMINS W/ FOLIC ACID TABLET (FP) PO SCH (09:54)
[2016-10-12] MEDS: LISINOPRIL 5 MG TABLET (FP) PO SCH (09:55)
[2016-10-12] MEDS: NICOTINE 21 MG/24 HOURS TOPICAL PATCH TD SCH (09:55)
[2016-10-12] MEDS: PARoxetine HCL 20 MG TABLET (FP) PO SCH (09:55)
[2016-10-12] MEDS: ASPIRIN 81 MG CHEWABLE TABLETS PO SCH (09:55)
[2016-10-12] MEDS: THIAMINE HCL 100 MG TABLET (FP) PO SCH (21:21)
[2016-10-12] MEDS: QUEtiapine FUMARATE 200 MG TABLET PO SCH (21:21)
[2016-10-13 07:08] VITALS: BP 134/80; PULSE 68; TEMP 98.4
--- NOTE | 2016-10-13 09:17 | PN ---
Psychiatric Progress Note Vital Signs: Vital Signs Period Temp Pulse Resp BP Sys/Altman Pulse Ox Last 24 Hr 98.4 F 68-84 18-20 134-138/62-80 Date of Session: 10/13/16 Chief Complaint:: Discharge Note HPI: Patient addressing Alcohol, Cocaine and Cannabis Dependence comorbid with Nicotine Dependence and Paranoid Schizophrenia ROS: Asthma, HTN, Hyperlipidemia, +PPD were medically managed Current Medications: Active Medications Generic Name Dose Route Start Last Admin Trade Name Freq PRN Reason Stop Dose Admin Acetaminophen 650 mg 10/02/16 16:44 10/11/16 11:41 Tylenol - PO 650 mg Q4H PRN Administration PAIN Al Hydroxide/Mg Hydroxide 30 ml 10/02/16 16:44 Mylanta Oral Suspension - PO Q6H PRN DYSPEPSIA Albuterol Sulfate 2 puff 10/02/16 16:49 Ventolin Hfa Inhaler - IH Q4H PRN SHORT OF BREATH/WHEEZING Aspirin 81 mg 10/02/16 18:00 10/12/16 09:55 Asa - PO 81 mg DAILY AINSLEY Administration Diphenhydramine HCl 50 mg 10/02/16 16:44 Benadryl - PO HSMR1 PRN INSOMNIA Eucalyptus/Menthol/Phenol/Sorbitol 1 each 10/02/16 16:44 Cepastat Lozenge - MM Q4H PRN SORE THROAT Guaifenesin 10 ml 10/02/16 16:44 Robitussin Dm - PO Q6H PRN COUGH Hydroxyzine Pamoate 50 mg 10/02/16 16:44 Vistaril - PO Q4H PRN AGITATION Ibuprofen 400 mg 10/02/16 16:44 10/11/16 09:52 Motrin - PO 400 mg Q6H PRN Administration SEVERE PAIN Lisinopril 5 mg 10/02/16 18:00 10/12/16 09:55 Prinivil PO 5 mg DAILY AINSLEY Administration Loperamide HCl 4 mg 10/02/16 16:44 Imodium - PO Q6H PRN DIARRHEA Magnesium Citrate 300 ml 10/02/16 16:44 Citroma - PO Q48H PRN CONSTIPATION Magnesium Hydroxide 30 ml 10/02/16 16:44 Milk Of Magnesia - PO DAILY PRN CONSTIPATION Nicotine 21 mg 10/02/16 16:45 10/12/16 09:55 Nicoderm Patch - TD Not Given DAILY AINSLEY Paroxetine HCl 20 mg 10/03/16 10:00 10/12/16 09:55 Paxil - PO 20 mg DAILY AINSLEY Administration Multivit/Folic Acid/Iron 1 tab 10/03/16 10:00 10/12/16 09:54 Vitamins (Sjr) - PO 1 tab DAILY AINSLEY Administration Pseudoephedrine/Triprolidine 1 combo 10/02/16 16:44 Actifed - PO TID PRN NASAL CONGESTION Quetiapine Fumarate 200 mg 10/02/16 22:00 10/12/16 21:21 Seroquel - PO 200 mg HS AINSLEY Administration Thiamine HCl 100 mg 10/02/16 22:00 10/12/16 21:21 Vitamin B1 - PO 100 mg HS AINSLEY Administration Current Side Effect: No Lab tests ordered: Yes Lab tests reviewed: Yes Provider note:: Patient has completed his program today He hasmet his short term goals and will continue to address his issues at [facility]. Told press writer that from his participation in this program, he has learned the importance of making meetings and having a sponsor. He responded well to Paxil 20 mg po daily and Seroquel 200 mg po HS. Script for 30 days supply of medications are electronically transmitted to [facility] at [address] [place] [id number]. He is stable for discharge today Total face to face time:: 35 Mental Status Exam - Mental Status Exam Alert and Oriented to: Time, Place, Person Cognitive Function: Fair Patient Appearance: Well Groomed Mood: Hopeful, Euthymic Affect: Appropriate Patient Behavior: Cooperative Speech Pattern: Clear Voice Loudness: Normal, Limited Variation Thought Process: Goal Oriented Thought Disorder: Not Present Hallucinations: Denies Suicidal Ideation: Denies Homicidal Ideation: Denies Insight/Judgement: Fair Sleep: Fair Appetite: Good Muscle strength/Tone: Normal Gait/Station: Normal Psychiatric Treatment Plan - Problem List (1) Alcohol dependence Current Visit: Yes (2) Cocaine dependence Current Visit: No (3) Cannabis dependence Current Visit: Yes (4) Nicotine dependence Current Visit: No Qualifiers: Nicotine product type: cigarettes Substance use status: uncomplicated Qualified Code(s): F17.210 - Nicotine dependence, cigarettes, uncomplicated (5) Schizophrenia, paranoid type Current Visit: No (6) Asthma Current Visit: No (7) Hypertension Current Visit: No Qualifiers: Hypertension type: essential hypertension Qualified Code(s): I10 - Essential (primary) hypertension (8) Hyperlipidemia Current Visit: Yes (9) PPD positive Current Visit: Yes Initial treatment plan: Patient is discharged today and referred to [facility] for outpatient treatment
[2016-10-13] MEDS: ASPIRIN 81 MG CHEWABLE TABLETS PO SCH (09:25)
[2016-10-13] MEDS: PRENATAL VITAMINS W/ FOLIC ACID TABLET (FP) PO SCH (09:25)
[2016-10-13] MEDS: PARoxetine HCL 20 MG TABLET (FP) PO SCH (09:25)
[2016-10-13] MEDS: LISINOPRIL 5 MG TABLET (FP) PO SCH (09:25)
[2016-10-13] MEDS: NICOTINE 21 MG/24 HOURS TOPICAL PATCH TD SCH (09:26)
== END 2016-10-13 09:23 | disposition home or self-care (01) | DRG 772 ==
LOC: YASAS 10:00 → Y3W 16:46
PROVIDERS: ADMIT Psychiatry & Neurology Psychiatry; ATTEND Psychiatry & Neurology Psychiatry
PROC: HZ42ZZZ Group Counseling for Substance Abuse Treatment, Cognitive-Behavioral (ICD-10-PCS; principal; 2016-10-02)
DX: F10.20 Alcohol dependence, uncomplicated (principal); F14.20 Cocaine dependence, uncomplicated; F12.20 Cannabis dependence, uncomplicated; F17.210 Nicotine dependence, cigarettes, uncomplicated; F20.0 Paranoid schizophrenia; J45.909 Unspecified asthma, uncomplicated; I10 Essential (primary) hypertension; E78.5 Hyperlipidemia, unspecified; R76.11 Nonspecific reaction to tuberculin skin test without active tuberculosis; Z91.14 Patient's other noncompliance with medication regimen; Z91.5 Personal history of self-harm
CPT/HCPCS: 36415; 80053; 81003; 82947; 85027; 86593; 87389; 93005; 93010

== ENCOUNTER 2017-03-03 14:04 | Inpatient (IN) | payer OTHER ==
[2017-03-03 16:33] VITALS: BMI 26.4
[2017-03-03] MEDS ORDERED: MENTHOL/PHENOL 1 EACH UD MM PRN (16:50)
[2017-03-03] MEDS ORDERED: guaiFENesin/D-METHORPHAN HB 10 ML UNIT-DOSE CUPS PO PRN (16:50)
[2017-03-03] MEDS ORDERED: P-EPHED 60MG/TRIPROLIDI 2.5MG TABLET PO PRN (16:50)
[2017-03-03] MEDS ORDERED: LOPERAMIDE HCL 2 MG CAPSULE PO PRN (16:50)
[2017-03-03] MEDS ORDERED: ACETAMINOPHEN 325 MG TABLET (FP) PO PRN (16:50)
[2017-03-03] MEDS ORDERED: MAGNESIUM CITRATE 300 ML BOTTLE PO PRN (16:50)
[2017-03-03] MEDS ORDERED: MAG HYDROX/AL HYDROX/SIMETH 30 ML UNIT-DOSE CUP PO PRN (16:50)
[2017-03-03] MEDS ORDERED: chlordiazePOXIDE HCL 25 MG CAPSULE PO PRN (16:50)
[2017-03-03] MEDS ORDERED: MAGNESIUM HYDROX 2400MG/30ML ORAL SUSPENSION 30 ML CUP PO PRN (16:50)
[2017-03-03] MEDS ORDERED: NICOTINE POLACRILEX 2 MG GUM BC PRN (16:50)
--- NOTE | 2017-03-03 16:50 | HP ---
CIWA Score - CIWA Score Nausea/Vomitin-Mild Nausea/No Vomiting Muscle Tremors: 4-Moderate,w/Arms Extend Anxiety: 4-Mod. Anxious/Guarded Agitation: 4-Moderately Restless Paroxysmal Sweats: 1-Minimal Palms Moist Orientation: 1-Uncertain about Date Tacttile Disturbances: 1-Very Mild Itch/Numbness Auditory Disturbances: 0-None Visual Disturbances: 0-None Headache: 0-None Present CIWA-Ar Total Score: 16 Admission ROS S - HPI Chief Complaint: withdrawal sx left hand multiple trauma, fracture, mid finger injured x 2-3 weeks ago treated at [facility] Allergies/Adverse Reactions: Allergies Allergy/AdvReac Type Severity Reaction Status Date / Time Penicillins Allergy Severe Hives Verified 03/03/17 16:44 mri dye Allergy Severe Hives Uncoded 03/03/17 16:44 History of Present Illness: 51 years old male with long history of alcohol nicotine dependence has hypertension, asthma, positive ppd and schizophrenia is admitted to detox Exam Limitations: No Limitations - Ebola screening Have you traveled outside of the country in the last 21 days: No Have you had contact with anyone from an Ebola affected area: No Have you been sick,other than usual withdrawal symptoms: No Do you have a fever: No - Review of Systems Constitutional: Changes in sleep, Weight Stable EENT: reports: Hearing Loss (left ear x 6 years) Respiratory: reports: SOB with Exertion Cardiac: reports: Other (multiple heart murmur) GI: reports: Nausea, Poor Fluid Intake, Abdominal cramping : reports: No Symptoms Reported Musculoskeletal: reports: Neck Pain, Other (left mid finger injuried x 2-3 weeks ago, limited mobility, 4/10 pain) Integumentary: reports: Dryness Neuro: reports: Tremors Endocrine: reports: No Symptoms Reported Hematology: reports: No Symptoms Reported Psychiatric: reports: Judgement Intact, Depressed Other Systems: Reviewed and Negative Patient History - Patient Medical History Hx Anemia: No Hx Asthma: Yes (on albuterol inhaler) Hx Chronic Obstructive Pulmonary Disease (COPD): No Hx Cancer: No Hx Cardiac Disorders: Yes (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) Hx Congestive Heart Failure: No Hx Hypertension: Yes (non compliance) Hx Hypercholesterolemia: Yes (no med) Hx Pacemaker: No HX Cerebrovascular Accident: No Hx Seizures: No Hx Dementia: No Hx Diabetes: No Hx Gastrointestinal Disorders: No Hx Liver Disease: No Hx Genitourinary Disorders: No Hx Sexually Transmitted Disorders: No Hx Renal Disease (ESRD): No Hx Thyroid Disease: No Hx Human Immunodeficiency Virus (HIV): No Hx Hepatitis C: No Hx Depression: No Hx Suicide Attempt: Yes (hanged self in 2009) Hx Bipolar Disorder: No Hx Schizophrenia: Yes (paranoid schizophrenia) - Patient Surgical History Past Surgical History: Yes Hx Neurologic Surgery: No Hx Cataract Extraction: No Hx Cardiac Surgery: No Hx Lung Surgery: No Hx Breast Surgery: No Hx Breast Biopsy: No Hx Abdominal Surgery: No Hx Appendectomy: No Hx Cholecystectomy: No Hx Genitourinary Surgery: No Hx Orthopedic Surgery: Yes (left middle mcp jt surgery ) Other Surgical History: Left Hand Surgery 10 yrs. ago Anesthesia Reaction: No - PPD History Previous Implant?: Yes Documented Results: Positive w/proof Implanted On Prior [facility] Admission?: No Date: 05/04/16 Results: 0 mm PPD to be Administered?: No - Smoking Cessation Smoking history: Current every day smoker Have you smoked in the past 12 months: Yes Aproximately how many cigarettes per day: 3 Cigars Per Day: 0 Hx Chewing Tobacco Use: No Initiated information on smoking cessation: Yes 'Breaking Loose' booklet given: 03/03/17 - Substance & Tx. History Hx Alcohol Use: Yes Hx Substance Use: Yes Substance Use Type: Alcohol, Cocaine, Marijuana Hx Substance Use Treatment: Yes (10/2016 [facility] Family Disease History - Family Disease History Family Disease History: Diabetes: Father (), Mother (), Other: Father, Mother Admission Physical Exam S - Vital Signs Vital Signs: Vital Signs - 24 hr 03/03/17 16:28 Temperature 98.8 F Pulse Rate 86 Respiratory 18 Rate Blood Pressure 145/83 - Physical General Appearance: Yes: Appropriately Dressed, Mild Distress, Tremorous, Irritable, Sweating, Anxious HEENTM: Yes: Hearing grossly Normal, Normal ENT Inspection, Normocephalic, Normal Voice Respiratory: Yes: Chest Non-Tender, No Respiratory Distress, No Accessory Muscle Use, Wheezing Neck: Yes: Supple, Trachea in good position Breast: Yes: Breasts Symetrical Cardiology: Yes: S1, S2, Murmur Abdominal: Yes: Normal Bowel Sounds, Non Tender, Soft Genitourinary: Yes: Within Normal Limits Back: Yes: Normal Inspection Musculoskeletal: Yes: full range of Motion, Gait Steady, Joint swelling (left mid finger), Muscle Pain (left hand injured 2-3 weeks ago) Extremities: Yes: Non-Tender, Tremors Neurological: Yes: Fully Oriented, Alert, Motor Strength 5/5, Normal Response, Depressed Affect Integumentary: Yes: Warm Lymphatic: Yes: Within Normal Limits - Diagnostic (1) Alcohol dependence with uncomplicated withdrawal Current Visit: Yes Status: Acute (2) Nicotine dependence Current Visit: Yes Status: Acute Qualifiers: Nicotine product type: cigarettes Substance use status: in withdrawal Qualified Code(s): F17.213 - Nicotine dependence, cigarettes, with withdrawal (3) PPD positive Current Visit: Yes Status: Resolved (4) Asthma Current Visit: Yes Status: Chronic (5) Hypertension Current Visit: Yes Status: Chronic Qualifiers: Hypertension type: essential hypertension Qualified Code(s): I10 - Essential (primary) hypertension (6) Schizophrenia, paranoid type Current Visit: Yes Status: Suspected Cleared for Admission S - Detox or Rehab [facility] Level of Care: Medically Managed Detox Regimen/Protocol: Librium [facility] Breath Alcohol Content Breath Alcohol Content: 0 Urine Drug Screen - Control Is Test Valid: Yes - Results Drug Screen Negative: No Urine Drug Screen Results: THC-Marijuana, YVON-Cocaine
[2017-03-03] MEDS: ALBUTEROL SO4 18 GM HFA INHALER IH PRN (19:59)
[2017-03-03] MEDS: chlordiazePOXIDE HCL 25 MG CAPSULE PO SCH (23:54)
[2017-03-03] MEDS: MINERAL OIL/PETROLAT/WATER TOPICAL CREAM 113 GM JAR TP SCH (23:55)
[2017-03-03] MEDS: THIAMINE HCL 100 MG TABLET (FP) PO SCH (23:55)
[2017-03-04 01:21] LABS: URINE APPEARANCE CLEAR; URINE BILIRUBIN NEGATIVE (NEGATIVE); URINE BLOOD NEGATIVE (NEGATIVE); URINE COLOR YELLOW; URINE GLUCOSE (UA) NEGATIVE (NEGATIVE); URINE KETONE NEGATIVE (NEGATIVE); URINE LEUK ESTERASE NEGATIVE (NEGATIVE); URINE NITRITE NEGATIVE (NEGATIVE); URINE PROTEIN NEGATIVE (NEGATIVE)
[2017-03-04] MEDS: chlordiazePOXIDE HCL 25 MG CAPSULE PO SCH ×4 (05:32→22:28)
--- NOTE | 2017-03-04 07:42 | CONSULT ---
[facility] Psychiatric Consult - Data Date of interview: 03/04/17 Admission source: [facility] Identifying data: This is 51 years old male with psychiatric hospitalization history imntoxicated with: Alcohol, , Nicotine, Cannabis and Cocaine Substance Abuse History: Smoking Cessation. Smoking history: Current every day smoker. Have you smoked in the past 12 months: Yes. Aproximately how many cigarettes per day: 3. Cigars Per Day: 0. Hx Chewing Tobacco Use: No. Initiated information on smoking cessation: Yes. 'Breaking Loose' booklet given : 03/03/17. - Substance & Tx. History. Hx Alcohol Use: Yes. Hx Substance Use : Yes. Substance Use Type: Alcohol, Cocaine, Marijuana. Hx Substance Use Treatment: Yes (10/2016 [facility]) Medical History: PPD+ HISTORY, Asthma, HTN Psychiatric History: Patient carries as per chart Schizophrenia, reports most recent psychiatric admission on abouit 5 years ago at [facility], reports taking prior to admission: Paxil 20mg poqd. Seroquel 200mg po qhs Physical/Sexual Abuse/Trauma History: Denies Additional Comment: Paxil 20mg poqd. Seroquel 200mg po qhs Mental Status Exam - Mental Status Exam Alert and Oriented to: Person Cognitive Function: Fair Patient Appearance: Unkempt Mood: Sad Affect: Flat Patient Behavior: Sedated Speech Pattern: Delayed Voice Loudness: Normal Thought Process: Goal Oriented Thought Disorder: Being Controlled Hallucinations: Denies Suicidal Ideation: Denies Homicidal Ideation: Denies Insight/Judgement: Fair Sleep: Difficulty falling asleep Appetite: Fair Muscle strength/Tone: Mild Hypotonicity Gait/Station: Shuffling Additional Comments: Paxil 20mg poqd. Seroquel 200mg po qhs Psychiatric Findings - Problem List ([place] 1, 2,3) (1) Alcohol dependence with uncomplicated withdrawal Current Visit: Yes Status: Acute (2) Nicotine dependence Current Visit: Yes Status: Acute Qualifiers: Nicotine product type: cigarettes Substance use status: in withdrawal Qualified Code(s): F17.213 - Nicotine dependence, cigarettes, with withdrawal (3) Schizophrenia, paranoid type Current Visit: Yes Status: Suspected (4) Alcohol dependence Current Visit: No Status: Acute (5) Cannabis dependence Current Visit: No Status: Acute (6) Cocaine dependence Current Visit: No Status: Acute - Initial Treatment Plan Initial Treatment Plan: Paxil 20mg poqd. Seroquel 200mg po qhs
--- NOTE | 2017-03-04 09:35 | PN ---
[facility] CIWA - CIWA Score Nausea/Vomitin-No Nausea/No Vomiting Muscle Tremors: 4-Moderate,w/Arms Extend Anxiety: 4-Mod. Anxious/Guarded Agitation: 4-Moderately Restless Paroxysmal Sweats: 3 Orientation: 0-Oriented Tacttile Disturbances: 0-None Auditory Disturbances: 0-None Visual Disturbances: 0-None Headache: 0-None Present CIWA-Ar Total Score: 15 [facility] Progress Note (SOAP) Subjective: agitation sweats shakes chills interrupted sleep body aches Objective: 03/04/17 09:34 Vital Signs Temperature 97.5 F L 03/04/17 09:31 Pulse Rate 103 H 03/04/17 09:31 Respiratory Rate 18 03/04/17 09:31 Blood Pressure 157/74 03/04/17 09:31 O2 Sat by Pulse Oximetry (%) Laboratory Tests 03/03/17 21:55 Urine Color Yellow Urine Appearance Clear Urine pH 6.0 Ur Specific [place] 1.011 Urine Protein Negative Urine Glucose (UA) Negative Urine Ketones Negative Urine Blood Negative Urine Nitrite Negative Urine Bilirubin Negative Urine Urobilinogen 2.0 labs pending aaox3 ambulating no acute distress Assessment: 03/04/17 09:34 withdrawal sx Plan: continue detox increase fluids labs pending
[2017-03-04 09:59] LABS: MCH 29.9 pg (25.7-33.7); MEAN CELL VOLUME 93.6 fl (80-96); MEAN PLT VOLUME 8.4 fl (7.5-11.1); PLATELET COUNT 295 K/MM3 (134-434); RDW 12.6 % (11.9-15.9); WHITE BLOOD COUNT 6.2 K/mm3 (4.0-10.0)
[2017-03-04 10:06] LABS: ALBUMIN 3.2 g/dl (3.4-5.0); ANION GAP 10 (8-16); CALCIUM 8.6 mg/dL (8.5-10.1); CO2 25 mmol/L (21-32); CREATININE 1.2 mg/dL (0.7-1.3); GLUCOSE,RANDOM 99 mg/dL (74-106); SGOT/AST 28 U/L (15-37); SGPT/ALT 41 U/L (12-78)
[2017-03-04 10:07] LABS: ALK PHOS 68 U/L (45-117); BILIRUBIN,TOTAL 0.5 mg/dL (0.2-1.0); TOT PROT 7.1 g/dl (6.4-8.2)
[2017-03-04] MEDS: PRENATAL VITAMINS W/ FOLIC ACID TABLET (FP) PO SCH (10:10)
[2017-03-04] MEDS: ASPIRIN 81 MG CHEWABLE TABLETS PO SCH (10:10)
[2017-03-04] MEDS: PARoxetine HCL 20 MG TABLET (FP) PO SCH (10:10)
[2017-03-04] MEDS: LISINOPRIL 5 MG TABLET (FP) PO SCH (10:10)
[2017-03-04] MEDS: NICOTINE 14 MG/24 HOURS TOPICAL PATCH TD SCH (10:11)
[2017-03-04 13:15] LABS: URINE LEUK ESTERASE Negative (NEGATIVE)
--- NOTE | 2017-03-04 16:35 | EKG ---
Test Reason : Blood Pressure : / mmHG Vent. Rate : 080 BPM Atrial Rate : 080 BPM P-R Int : 162 ms QRS Dur : 092 ms QT Int : 382 ms P-R-T Axes : 064 045 042 degrees QTc Int : 440 ms NORMAL SINUS RHYTHM NONSPECIFIC T WAVE ABNORMALITY ABNORMAL ECG WHEN COMPARED WITH ECG OF 02-OCT-2016 21:42, NONSPECIFIC T WAVE ABNORMALITY NOW EVIDENT IN LATERAL LEADS Confirmed by XIOMY JAMA, DEVAN ([id number]) on 03/04/2017 4:35:22 PM Referred By: Confirmed By:DEVAN STAUFFER MD
[2017-03-04] MEDS: THIAMINE HCL 100 MG TABLET (FP) PO SCH (22:28)
[2017-03-04] MEDS: QUEtiapine FUMARATE 200 MG TABLET PO SCH (22:28)
[2017-03-04] MEDS: ALBUTEROL SO4 18 GM HFA INHALER IH PRN (22:28)
[2017-03-04] MEDS: MINERAL OIL/PETROLAT/WATER TOPICAL CREAM 113 GM JAR TP SCH (22:38)
[2017-03-05] MEDS: chlordiazePOXIDE HCL 25 MG CAPSULE PO SCH ×3 (07:34→16:40)
[2017-03-05 09:23] LABS: HIV 1 & 2 AB NEGATIVE; HIV 1 AGp24 NEGATIVE
[2017-03-05] MEDS: PRENATAL VITAMINS W/ FOLIC ACID TABLET (FP) PO SCH (10:07)
[2017-03-05] MEDS: LISINOPRIL 5 MG TABLET (FP) PO SCH (10:07)
[2017-03-05] MEDS: ASPIRIN 81 MG CHEWABLE TABLETS PO SCH (10:07)
[2017-03-05] MEDS: PARoxetine HCL 20 MG TABLET (FP) PO SCH (10:07)
[2017-03-05] MEDS: NICOTINE 14 MG/24 HOURS TOPICAL PATCH TD SCH (10:08)
--- NOTE | 2017-03-05 12:10 | PN ---
S CIWA - CIWA Score Nausea/Vomitin-No Nausea/No Vomiting Muscle Tremors: 4-Moderate,w/Arms Extend Anxiety: 3 Agitation: 4-Moderately Restless Paroxysmal Sweats: 3 Orientation: 0-Oriented Tacttile Disturbances: 0-None Auditory Disturbances: 0-None Visual Disturbances: 0-None Headache: 0-None Present CIWA-Ar Total Score: 14 BHS Progress Note (SOAP) Subjective: interrupted sleep shakes sweats body aches Objective: 03/05/17 12:09 Vital Signs Temperature 98.0 F 03/05/17 10:10 Pulse Rate 72 03/05/17 10:10 Respiratory Rate 18 03/05/17 10:10 Blood Pressure 138/66 03/05/17 10:10 O2 Sat by Pulse Oximetry (%) Laboratory Tests 03/03/17 03/04/17 03/04/17 21:55 07:00 07:00 WBC 6.2 D RBC 4.26 Hgb 12.8 Hct 39.9 MCV 93.6 MCH 29.9 MCHC 32.0 RDW 12.6 Plt Count 295 MPV 8.4 Sodium 140 Potassium 4.3 Chloride 105 Carbon Dioxide 25 Anion Gap 10 BUN 13 Creatinine 1.2 Creat Clearance w eGFR > 60 Random Glucose 99 D Calcium 8.6 Total Bilirubin 0.5 D AST 28 D ALT 41 D Alkaline Phosphatase 68 Total Protein 7.1 Albumin 3.2 L Urine Color Yellow Urine Appearance Clear Urine pH 6.0 Ur Specific [place] 1.011 Urine Protein Negative Urine Glucose (UA) Negative Urine Ketones Negative Urine Blood Negative Urine Nitrite Negative Urine Bilirubin Negative Urine Urobilinogen 2.0 Ur Leukocyte Esterase Negative RPR Titer HIV 1&2 Antibody Screen HIV P24 Antigen 03/04/17 03/04/17 07:00 08:00 WBC RBC Hgb Hct MCV MCH MCHC RDW Plt Count MPV Sodium Potassium Chloride Carbon Dioxide Anion Gap BUN Creatinine Creat Clearance w eGFR Random Glucose Calcium Total Bilirubin AST ALT Alkaline Phosphatase Total Protein Albumin Urine Color Urine Appearance Urine pH Ur Specific [place] Urine Protein Urine Glucose (UA) Urine Ketones Urine Blood Urine Nitrite Urine Bilirubin Urine Urobilinogen Ur Leukocyte Esterase RPR Titer Nonreactive HIV 1&2 Antibody Screen Negative HIV P24 Antigen Negative aaox3 ambulating no acute distress Assessment: 03/05/17 12:10 withdrawal sx Plan: continue detox increase fluids
[2017-03-05] MEDS: ALBUTEROL SO4 18 GM HFA INHALER IH PRN (20:47)
[2017-03-05] MEDS: QUEtiapine FUMARATE 200 MG TABLET PO SCH (22:10)
[2017-03-05] MEDS: chlordiazePOXIDE 5 MG CAPSULE PO SCH (22:10)
[2017-03-05] MEDS: THIAMINE HCL 100 MG TABLET (FP) PO SCH (22:10)
[2017-03-05] MEDS: MINERAL OIL/PETROLAT/WATER TOPICAL CREAM 113 GM JAR TP SCH (22:12)
[2017-03-06] MEDS: chlordiazePOXIDE 5 MG CAPSULE PO SCH ×3 (05:35→17:26)
[2017-03-06] MEDS: ASPIRIN 81 MG CHEWABLE TABLETS PO SCH (10:17)
[2017-03-06] MEDS: PRENATAL VITAMINS W/ FOLIC ACID TABLET (FP) PO SCH (10:17)
[2017-03-06] MEDS: NICOTINE 14 MG/24 HOURS TOPICAL PATCH TD SCH (10:18)
[2017-03-06] MEDS: LISINOPRIL 5 MG TABLET (FP) PO SCH (10:18)
[2017-03-06] MEDS: PARoxetine HCL 20 MG TABLET (FP) PO SCH (10:18)
--- NOTE | 2017-03-06 19:00 | PN ---
[facility] Progress Note (SOAP) Subjective: Sweating,interrupted sleep,restless Objective: 03/06/17 18:59 Vital Signs - 8 hr 03/06/17 15:40 Temperature 97.9 F Pulse Rate 91 H Respiratory 18 Rate Blood Pressure 111/53 Laboratory Tests 03/03/17 03/04/17 03/04/17 21:55 07:00 07:00 WBC 6.2 D RBC 4.26 Hgb 12.8 Hct 39.9 MCV 93.6 MCH 29.9 MCHC 32.0 RDW 12.6 Plt Count 295 MPV 8.4 Sodium 140 Potassium 4.3 Chloride 105 Carbon Dioxide 25 Anion Gap 10 BUN 13 Creatinine 1.2 Creat Clearance w eGFR > 60 Random Glucose 99 D Calcium 8.6 Total Bilirubin 0.5 D AST 28 D ALT 41 D Alkaline Phosphatase 68 Total Protein 7.1 Albumin 3.2 L Urine Color Yellow Urine Appearance Clear Urine pH 6.0 Ur Specific [place] 1.011 Urine Protein Negative Urine Glucose (UA) Negative Urine Ketones Negative Urine Blood Negative Urine Nitrite Negative Urine Bilirubin Negative Urine Urobilinogen 2.0 Ur Leukocyte Esterase Negative RPR Titer HIV 1&2 Antibody Screen HIV P24 Antigen 03/04/17 03/04/17 07:00 08:00 WBC RBC Hgb Hct MCV MCH MCHC RDW Plt Count MPV Sodium Potassium Chloride Carbon Dioxide Anion Gap BUN Creatinine Creat Clearance w eGFR Random Glucose Calcium Total Bilirubin AST ALT Alkaline Phosphatase Total Protein Albumin Urine Color Urine Appearance Urine pH Ur Specific [place] Urine Protein Urine Glucose (UA) Urine Ketones Urine Blood Urine Nitrite Urine Bilirubin Urine Urobilinogen Ur Leukocyte Esterase RPR Titer Nonreactive HIV 1&2 Antibody Screen Negative HIV P24 Antigen Negative labs noted Assessment: 03/06/17 19:00 Withdrawal sx. Plan: Continue detox
[2017-03-06] MEDS: THIAMINE HCL 100 MG TABLET (FP) PO SCH (22:04)
[2017-03-06] MEDS: MINERAL OIL/PETROLAT/WATER TOPICAL CREAM 113 GM JAR TP SCH (22:04)
[2017-03-06] MEDS: chlordiazePOXIDE HCL 10 MG CAPSULE PO SCH (22:04)
[2017-03-06] MEDS: QUEtiapine FUMARATE 200 MG TABLET PO SCH (22:04)
[2017-03-07] MEDS: chlordiazePOXIDE HCL 10 MG CAPSULE PO SCH ×2 (05:40→11:59)
--- NOTE | 2017-03-07 10:18 | DS ---
[facility] Detox Discharge Summary Admission Date: 03/03/17 Discharge Date: 03/07/17 - History Present History: Alcohol Dependence, Cannabis Dependence, Cocaine Dependence Pertinent Past History: Hyperlipidemia HTN Asthma - Physical Exam Results Vital Signs: Vital Signs Temperature 97.9 F 03/07/17 07:02 Pulse Rate 77 03/07/17 07:02 Respiratory Rate 18 03/07/17 07:02 Blood Pressure 117/71 03/07/17 07:02 O2 Sat by Pulse Oximetry (%) Pertinent Admission Physical Exam Findings: Withdrawal sx. Laboratory Tests 03/03/17 03/04/17 03/04/17 21:55 07:00 07:00 WBC 6.2 D RBC 4.26 Hgb 12.8 Hct 39.9 MCV 93.6 MCH 29.9 MCHC 32.0 RDW 12.6 Plt Count 295 MPV 8.4 Sodium 140 Potassium 4.3 Chloride 105 Carbon Dioxide 25 Anion Gap 10 BUN 13 Creatinine 1.2 Creat Clearance w eGFR > 60 Random Glucose 99 D Calcium 8.6 Total Bilirubin 0.5 D AST 28 D ALT 41 D Alkaline Phosphatase 68 Total Protein 7.1 Albumin 3.2 L Urine Color Yellow Urine Appearance Clear Urine pH 6.0 Ur Specific [place] 1.011 Urine Protein Negative Urine Glucose (UA) Negative Urine Ketones Negative Urine Blood Negative Urine Nitrite Negative Urine Bilirubin Negative Urine Urobilinogen 2.0 Ur Leukocyte Esterase Negative RPR Titer HIV 1&2 Antibody Screen HIV P24 Antigen 03/04/17 03/04/17 07:00 08:00 WBC RBC Hgb Hct MCV MCH MCHC RDW Plt Count MPV Sodium Potassium Chloride Carbon Dioxide Anion Gap BUN Creatinine Creat Clearance w eGFR Random Glucose Calcium Total Bilirubin AST ALT Alkaline Phosphatase Total Protein Albumin Urine Color Urine Appearance Urine pH Ur Specific [place] Urine Protein Urine Glucose (UA) Urine Ketones Urine Blood Urine Nitrite Urine Bilirubin Urine Urobilinogen Ur Leukocyte Esterase RPR Titer Nonreactive HIV 1&2 Antibody Screen Negative HIV P24 Antigen Negative labs noted - Treatment Hospital Course: Detox Protocol Followed, Detoxed Safely, Responded well, Discharged Condition Good, Rehab Referral Accepted Patient has Accepted a Rehab Referral to: [facility] - Medication Discharge Medications: Ambulatory Orders Albuterol Sulfate [Proventil HFA Inhaler -] 2 inh IH Q4H PRN #1 hfa.aer.ad 04/21 Aspirin [ASA -] 81 mg PO DAILY #30 tab.chew 10/13/16 Lisinopril [Prinivil] 5 mg PO DAILY #30 tablet 10/13/16 Paroxetine HCl [Paxil -] 20 mg PO DAILY #30 tablet 03/04/17 Quetiapine Fumarate [Seroquel -] 200 mg PO HS #30 tab 03/04/17 - Diagnosis (1) Alcohol dependence with uncomplicated withdrawal Current Visit: Yes Status: Chronic (2) Asthma Current Visit: Yes Status: Chronic (3) Hypertension Current Visit: Yes Status: Chronic Qualifiers: Hypertension type: essential hypertension Qualified Code(s): I10 - Essential (primary) hypertension (4) Nicotine dependence Current Visit: Yes Status: Chronic Qualifiers: Nicotine product type: cigarettes Substance use status: uncomplicated Qualified Code(s): F17.210 - Nicotine dependence, cigarettes, uncomplicated (5) Schizophrenia, paranoid type Current Visit: Yes Status: Suspected (6) Cannabis dependence Current Visit: Yes Status: Acute (7) Cocaine dependence Current Visit: Yes Status: Acute (8) Hyperlipidemia Current Visit: No Status: Acute - AMA Did Patient Leave Against Medical Advice: No
[2017-03-07] MEDS: ASPIRIN 81 MG CHEWABLE TABLETS PO SCH (10:35)
[2017-03-07] MEDS: NICOTINE 14 MG/24 HOURS TOPICAL PATCH TD SCH (10:35)
[2017-03-07] MEDS: PRENATAL VITAMINS W/ FOLIC ACID TABLET (FP) PO SCH (10:35)
[2017-03-07] MEDS: LISINOPRIL 5 MG TABLET (FP) PO SCH (10:35)
[2017-03-07] MEDS: PARoxetine HCL 20 MG TABLET (FP) PO SCH (10:35)
[2017-03-07 11:50] VITALS: BP 137/67; PULSE 101; TEMP 98
== END 2017-03-07 12:49 | disposition other institution (70) | DRG 774 ==
LOC: YASAS 14:04 → Y6N 19:04
PROVIDERS: ADMIT Internal Medicine; ATTEND Internal Medicine
PROC: HZ2ZZZZ Detoxification Services for Substance Abuse Treatment (ICD-10-PCS; principal; 2017-03-03)
DX: F10.230 Alcohol dependence with withdrawal, uncomplicated (principal); F14.20 Cocaine dependence, uncomplicated; F12.20 Cannabis dependence, uncomplicated; F17.210 Nicotine dependence, cigarettes, uncomplicated; F20.0 Paranoid schizophrenia; I10 Essential (primary) hypertension; I25.2 Old myocardial infarction; E78.5 Hyperlipidemia, unspecified; R01.1 Cardiac murmur, unspecified; J45.909 Unspecified asthma, uncomplicated; R76.11 Nonspecific reaction to tuberculin skin test without active tuberculosis; G47.00 Insomnia, unspecified; Z88.0 Allergy status to penicillin; Z91.041 Radiographic dye allergy status; Z91.14 Patient's other noncompliance with medication regimen; Z91.5 Personal history of self-harm
CPT/HCPCS: 36415; 80053; 81003; 85027; 86593; 87389; 93005; 93010

== ENCOUNTER 2017-03-07 12:54 | Inpatient (IN) | payer OTHER ==
[2017-03-07] MEDS ORDERED: MAGNESIUM HYDROX 2400MG/30ML ORAL SUSPENSION 30 ML CUP PO PRN (13:21)
[2017-03-07] MEDS ORDERED: IBUPROFEN 400 MG TABLET (FP) PO PRN (13:21)
[2017-03-07] MEDS ORDERED: MAGNESIUM CITRATE 300 ML BOTTLE PO PRN (13:21)
[2017-03-07] MEDS ORDERED: P-EPHED 60MG/TRIPROLIDI 2.5MG TABLET PO PRN (13:21)
[2017-03-07] MEDS ORDERED: ALBUTEROL SO4 18 GM HFA INHALER IH PRN (13:21)
[2017-03-07] MEDS ORDERED: LOPERAMIDE HCL 2 MG CAPSULE PO PRN (13:21)
[2017-03-07] MEDS ORDERED: guaiFENesin/D-METHORPHAN HB 10 ML UNIT-DOSE CUPS PO PRN (13:21)
[2017-03-07] MEDS ORDERED: NICOTINE POLACRILEX 4 MG GUM BUC PRN (13:21)
[2017-03-07] MEDS ORDERED: MENTHOL/PHENOL 1 EACH UD MM PRN (13:21)
[2017-03-07] MEDS ORDERED: ACETAMINOPHEN 325 MG TABLET (FP) PO PRN (13:21)
[2017-03-07] MEDS ORDERED: MAG HYDROX/AL HYDROX/SIMETH 30 ML UNIT-DOSE CUP PO PRN (13:21)
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
[2017-03-07] MEDS ORDERED: FLU VACCINE QUAD 60 MCG/0.5 ML (MDV 17-18) IM ONE (18:28)
[2017-03-07] MEDS: QUEtiapine FUMARATE 200 MG TABLET PO SCH (21:36)
[2017-03-07] MEDS: hydrOXYzine PAMOATE 50 MG CAPSULE (FP) PO PRN (21:36)
[2017-03-07] MEDS: THIAMINE HCL 100 MG TABLET (FP) PO SCH (21:37)
[2017-03-08] MEDS: LISINOPRIL 5 MG TABLET (FP) PO SCH (10:07)
[2017-03-08] MEDS: NICOTINE 21 MG/24 HOURS TOPICAL PATCH TD SCH (10:07)
[2017-03-08] MEDS: ASPIRIN 81 MG CHEWABLE TABLETS PO SCH (10:07)
[2017-03-08] MEDS: PRENATAL VITAMINS W/ FOLIC ACID TABLET (FP) PO SCH (10:07)
[2017-03-08] MEDS: PARoxetine HCL 20 MG TABLET (FP) PO SCH (11:26)
[2017-03-08] MEDS ORDERED: FLU VACCINE QUAD 60 MCG/0.5 ML (MDV 17-18) IM ONE (12:15)
[2017-03-08] MEDS: THIAMINE HCL 100 MG TABLET (FP) PO SCH (21:55)
[2017-03-08] MEDS: QUEtiapine FUMARATE 200 MG TABLET PO SCH (21:55)
[2017-03-09] MEDS: PRENATAL VITAMINS W/ FOLIC ACID TABLET (FP) PO SCH (09:44)
[2017-03-09] MEDS: ASPIRIN 81 MG CHEWABLE TABLETS PO SCH (09:44)
[2017-03-09] MEDS: LISINOPRIL 5 MG TABLET (FP) PO SCH (09:44)
[2017-03-09] MEDS: PARoxetine HCL 20 MG TABLET (FP) PO SCH (09:44)
[2017-03-09] MEDS: NICOTINE 21 MG/24 HOURS TOPICAL PATCH TD SCH (09:44)
[2017-03-09] MEDS: QUEtiapine FUMARATE 200 MG TABLET PO SCH (21:20)
[2017-03-09] MEDS: THIAMINE HCL 100 MG TABLET (FP) PO SCH (21:20)
[2017-03-09] MEDS: hydrOXYzine PAMOATE 50 MG CAPSULE (FP) PO PRN (21:20)
[2017-03-10] MEDS: PARoxetine HCL 20 MG TABLET (FP) PO SCH (10:54)
[2017-03-10] MEDS: PRENATAL VITAMINS W/ FOLIC ACID TABLET (FP) PO SCH (10:54)
[2017-03-10] MEDS: ASPIRIN 81 MG CHEWABLE TABLETS PO SCH (10:54)
[2017-03-10] MEDS: LISINOPRIL 5 MG TABLET (FP) PO SCH (10:54)
[2017-03-10] MEDS: NICOTINE 21 MG/24 HOURS TOPICAL PATCH TD SCH (10:55)
[2017-03-10] MEDS: QUEtiapine FUMARATE 200 MG TABLET PO SCH (21:20)
[2017-03-10] MEDS: THIAMINE HCL 100 MG TABLET (FP) PO SCH (21:20)
[2017-03-11] MEDS: ASPIRIN 81 MG CHEWABLE TABLETS PO SCH (10:43)
[2017-03-11] MEDS: LISINOPRIL 5 MG TABLET (FP) PO SCH (10:43)
[2017-03-11] MEDS: PRENATAL VITAMINS W/ FOLIC ACID TABLET (FP) PO SCH (10:43)
[2017-03-11] MEDS: PARoxetine HCL 20 MG TABLET (FP) PO SCH (10:43)
[2017-03-11] MEDS: NICOTINE 21 MG/24 HOURS TOPICAL PATCH TD SCH (10:44)
[2017-03-11] MEDS: QUEtiapine FUMARATE 200 MG TABLET PO SCH (21:17)
[2017-03-11] MEDS: THIAMINE HCL 100 MG TABLET (FP) PO SCH (21:17)
[2017-03-12 06:40] VITALS: BP 137/73; PULSE 80; TEMP 97.9
== END 2017-03-12 07:35 | disposition left against medical advice (07) | DRG 770 ==
LOC: YASAS 12:54 → Y3W 12:57
PROVIDERS: ADMIT Psychiatry & Neurology Psychiatry; ATTEND Psychiatry & Neurology Psychiatry
PROC: HZ42ZZZ Group Counseling for Substance Abuse Treatment, Cognitive-Behavioral (ICD-10-PCS; principal; 2017-03-07)
DX: F10.20 Alcohol dependence, uncomplicated (principal); F14.20 Cocaine dependence, uncomplicated; F17.210 Nicotine dependence, cigarettes, uncomplicated; F20.0 Paranoid schizophrenia; F19.282 Other psychoactive substance dependence with psychoactive substance-induced sleep disorder; J45.909 Unspecified asthma, uncomplicated; I10 Essential (primary) hypertension; R76.11 Nonspecific reaction to tuberculin skin test without active tuberculosis
CPT/HCPCS: 90688; G0008

== ENCOUNTER 2017-09-20 17:48 | Inpatient (IN) | payer OTHER ==
[2017-09-20 18:19] VITALS: BMI 33.2
--- NOTE | 2017-09-20 18:31 | PDOC ---
History of Present Illness - General Chief Complaint: Altered Mental Status Stated Complaint: CVA Time Seen by Provider: 09/20/17 18:06 History Source: Patient - History of Present Illness Initial Comments: 52m with pmh of Mi in 2009 s/p stents in [facility], HTN, schizophrenia, CVA with residual left sided weakness, abuse of etoh, cocaine and marijuana currently getting Alcohol Detox at [facility], found slurring his speech and extremely weak on the left side complaining of chest pain. Note from [facility]: Patient last night was c/o chest pain w/o relief from Mylanta. Patient alert and oriented. C/o sharp mid-sternal chest pain w/o radiation. States also having SOB. Lungs CTA. R: 18; Heart rate-regular rhythm at 76. Murmur noted. EKG indicates ST changes. B/P: 138.60; T: 97.5; Hx: old AL and angioplasty in 2009, asthma, HTN, and CVA w/ residual effects of (L) arm weakness w/ mild contracture of hand. Hx. Alcohol and cocaine use disorder. Patient informed of need for ER evaluation of chest pain. Patient to be transported by [facility] to [facility] ER. Report given to Dr. Esquivel. Arrived non-responsive to sternal rub in the ED. Normal vital on monitor, with on/off responsive episodes. Denies taking drugs today. Pupils non-pinpoint. No narcan given. 09/20/17 19:03 Past History - Past Medical History Allergies/Adverse Reactions: Allergies Allergy/AdvReac Type Severity Reaction Status Date / Time Penicillins Allergy Severe Hives Verified 09/20/17 18:19 mri dye Allergy Severe Hives Uncoded 09/20/17 18:19 Home Medications: Ambulatory Orders Albuterol Sulfate [Proventil HFA Inhaler -] 2 inh IH Q4H PRN #1 hfa.aer.ad 04/21 Aspirin [ASA -] 81 mg PO DAILY #30 tab.chew 10/13/16 Lisinopril [Prinivil] 5 mg PO DAILY #30 tablet 10/13/16 Paroxetine HCl [Paxil -] 20 mg PO DAILY #30 tablet 03/04/17 Quetiapine Fumarate [Seroquel -] 200 mg PO HS #30 tab 03/04/17 Anemia: No Asthma: Yes (ON ALBUTEROL INHALER) Cancer: No Cardiac Disorders: Yes (OLD AL S/P ANGIOPLASTY AND STENT 2009 [facility]) CVA: No COPD: No CHF: No Dementia: No Diabetes: No GI Disorders: No Disorders: No HTN: Yes (ON MED) Hypercholesterolemia: Yes (no med) Kidney Stones: No Liver Disease: No Seizures: No Thyroid Disease: No - Surgical History Abdominal Surgery: No Appendectomy: No Cardiac Surgery: Yes (OLD AL S/P ANGIOPLAST WITH STENT IN 2009) Cholecystectomy: No Lung Surgery: No Neurologic Surgery: No Orthopedic Surgery: Yes (left middle mcp jt surgery 2010) - Reproductive History Testicular Surgery: No - Suicide/Smoking/Psychosocial Hx Smoking History: Unknown if ever smoked Have you smoked in the past 12 months: Yes Number of Cigarettes Smoked Daily: 3 Cigars Per Day: 0 Information on smoking cessation initiated: No 'Breaking Loose' booklet given: 09/18/17 Hx Alcohol Use: No Drug/Substance Use Hx: No Substance Use Type: Alcohol Hx Substance Use Treatment: Yes ([facility] 03/07/17 TO 03/12/17) Review of Systems - Review of Systems Able to Perform ROS?: No (lethargy) *Physical Exam - Vital Signs Last Vital Signs Temp Pulse Resp BP Pulse Ox 98.8 F 80 16 144/73 100 09/20/17 17:48 09/20/17 17:48 09/20/17 17:48 09/20/17 17:48 09/20/17 17:48 - Physical Exam General Appearance: Yes: Thin. No: Alcohol on Breath HEENT: positive: EOMI, DORIAN, Normal ENT Inspection Respiratory/Chest: positive: Chest Tender (left chest ), Normal Breath Sounds. negative: Lungs Clear, Respiratory Distress Cardiovascular: positive: Regular Rhythm, Regular Rate, S1, S2 Gastrointestinal/Abdominal: positive: Normal Bowel Sounds, Flat, Soft. negative : Tender Musculoskeletal: positive: Other (unable to moved or feels anything left side). negative: CVA Tenderness Extremity: positive: Normal Capillary Refill, Normal Inspection Integumentary: positive: Normal Color, Dry, Warm Neurologic: positive: Facial Droop, Confused, Babinski. negative: Fully Oriented, Alert, Normal Mood/Affect, Normal Response ED Treatment Course - LABORATORY CBC & Chemistry Diagram: 09/20/17 18:30 09/20/17 18:30 - RADIOLOGY Radiology Studies Ordered: Category Date Time Status CHEST CTA [CT] Stat CT Scan 09/20/17 18:[address] (STROKE) [CT] Stat CT Scan 09/20/17 18:13 Ordered CHEST X-RAY PORTABLE* [RAD] Stat Radiology 09/20/17 18:12 Ordered Medical Decision Making - Medical Decision Making 09/20/17 19:07 Stroke work up vs dissection vs AL. Labs pending EKG: Normal sinus rhythm. Labs pending head ct pending Chest CTA pending 09/20/17 19:09 cxr: Unremarkable contour of the cardiomediastinal silhouette. The lungs are well aerated. No evidence of pneumonia, atelectasis pleural effusion, or pneumothorax. The pulmonary vasculature is normal. No evidence of bulky hilar adenopathy. Lung nodule, lung mass, or cavitary lesion is seen within the limitation of examination. The visualized osseous structures appear intact *DC/Admit/Observation/Transfer Diagnosis at time of Disposition: Altered mental status - Referrals - Patient Instructions - Post Discharge Activity
[2017-09-20 18:44] LABS: EOS % 9.7 % (0-4.5); HEMATOCRIT 40.7 % (35.4-49); HEMOGLOBIN 13.5 GM/dL (11.7-16.9); LYMPH % 21.7 % (8-40); MCH 30.6 pg (25.7-33.7); MCHC 33.2 g/dl (32.0-35.9); MEAN CELL VOLUME 92.3 fl (80-96); MEAN PLT VOLUME 9.3 fl (7.5-11.1); MONO % 11.9 % (3.8-10.2); NEUT % 55.7 % (42.8-82.8); PLATELET COUNT 227 K/MM3 (134-434); RBC 4.41 M/mm3 (4.00-5.60); WHITE BLOOD COUNT 5.4 K/mm3 (4.0-10.0)
--- NOTE | 2017-09-20 19:09 | PDOC ---
Attending Attestation - Resident Resident Name: Marquez Esquivle - ED Attending Attestation I have performed the following: I have examined & evaluated the patient, The case was reviewed & discussed with the resident, I agree w/resident's findings & plan, Exceptions are as noted - HPI HPI: 09/20/17 19:07 52-year-old male with past medical history of coronary disease, angioplasty, asthma, hypertension, stroke with his initial left arm weakness, polysubstance abuse sent from [facility] center for 10 lies weakness and chest pain. The patient reportedly according to notes was well in his usual state health yesterday. Today he was complaining about midsternal chest pain that was not relieved by Mylanta. He suddenly became weaker and weaker and states that he is unable to ambulate. He reports that he feels left sided chest pain but is able to characters any further. The patient is alert and protecting his airway but appears generally very weak. - Physicial Exam PE: 09/20/17 19:07 GENERAL: Appears generally weak, speaking softly, HEAD: No signs of trauma EYES: PERRLA, EOMI, sclera anicteric, conjunctiva clear ENT: Auricles normal inspection, hearing grossly normal, nares patent NECK: Normal ROM, supple LUNGS: Breath sounds equal, clear to auscultation bilaterally. No wheezes, and no crackles HEART: Regular rate and rhythm, normal S1 and S2, no murmurs, rubs or gallops ABDOMEN: Soft, nontender No guarding, no rebound. No masses EXTREMITIES: Normal range of motion, no edema. No clubbing or cyanosis. No cords, erythema, or tenderness NEUROLOGICAL: Cranial nerves II through XII grossly intact. Unable to move any of his extremities secondary to pain. Reports generalized numbness throughout. SKIN: Warm, Dry, normal turgor, no rashes or lesions noted. - Medical Decision Making 09/20/17 19:08 Vital Signs Temp Pulse Resp BP Pulse Ox 98.8 F 80 16 144/73 100 09/20/17 17:48 09/20/17 17:48 09/20/17 17:48 09/20/17 17:48 09/20/17 18:30 It is unclear what the etiology of the symptoms are. EKGs were reviewed from [address] [place] [address] which showed no acute ST elevations or findings. However, differential does include myocardial infarction or acute coronary syndrome. Though probably less likely, we'll check for aortic dissection. Obtain head CT to rule out neurological etiologies. Patient is currently protecting his airway. We'll obtain labs, chest x-ray and admit the patient to the hospital for further evaluation.
[2017-09-20 19:15] LABS: ALBUMIN 3.1 g/dl (3.4-5.0); ANION GAP 9 (8-16); BILIRUBIN,TOTAL 0.2 mg/dL (0.2-1.0); BLOOD UREA NITROGEN 19 mg/dL (7-18); CALCIUM 8.8 mg/dL (8.5-10.1); CHLORIDE 107 mmol/L (98-107); CO2 26 mmol/L (21-32); CREATININE 1.2 mg/dL (0.7-1.3); GLUCOSE,RANDOM 136 mg/dL (74-106); POTASSIUM 4.1 mmol/L (3.5-5.1); SGOT/AST 18 U/L (15-37); SGPT/ALT 30 U/L (12-78); SODIUM 142 mmol/L (136-145); TOT PROT 6.6 g/dl (6.4-8.2)
[2017-09-20 19:17] LABS: ALK PHOS 78 U/L (45-117)
--- NOTE | 2017-09-20 19:25 | PDOC ---
*Physical Exam - Vital Signs Last Vital Signs Temp Pulse Resp BP Pulse Ox 98.8 F 80 16 144/73 100 09/20/17 17:48 09/20/17 17:48 09/20/17 17:48 09/20/17 17:48 09/20/17 18:30 ED Treatment Course - LABORATORY CBC & Chemistry Diagram: 09/20/17 18:30 09/20/17 18:30 - ADDITIONAL ORDERS Additional order review: Laboratory Results 09/20/17 18:30 Sodium 142 Potassium 4.1 Chloride 107 Carbon Dioxide 26 Anion Gap 9 BUN 19 H Creatinine 1.2 Creat Clearance w eGFR > 60 Random Glucose 136 H D Calcium 8.8 Total Bilirubin 0.2 AST 18 D ALT 30 Alkaline Phosphatase 78 Troponin I 0.37 H Total Protein 6.6 Albumin 3.1 L 09/20/17 18:30 RBC 4.41 MCV 92.3 MCHC 33.2 RDW 13.0 MPV 9.3 Neutrophils % 55.7 Lymphocytes % 21.7 Monocytes % 11.9 H Eosinophils % 9.7 H Basophils % 1.0 Medical Decision Making - Medical Decision Making 09/20/17 19:23 The patient was signed out to me by Dr. Esquivel. The patient is a 52M with an extensive cardiac history presenting from detox for chest tightness. Pending CTH and CMP. 09/20/17 20:50 Pt had an episode of unresponsiveness. Vitals remained WNL. Pt had a pulse. Eyes noted to be pointed towards midline and inferiorly as well as b/l nystagmus. Pt likely had a seizure. Will give 1 g keppra and 1 mg Ativan. Pt also noted to have lactate of 3.1. Giving 3500 mL NS for fluid resuscitation. Pending CTH. 09/21/17 00:19 CTH negative. Repeat lactate 1.3. I have endorsed the pt to Dr. Melissa for admission under Dr. Field. *DC/Admit/Observation/Transfer Diagnosis at time of Disposition: Schizo-affective schizophrenia, chronic condition Altered mental status Qualifiers: Altered mental status type: unspecified Qualified Code(s): R41.82 - Altered mental status, unspecified Alcohol dependence Qualifiers: Substance use status: in withdrawal Complication of substance-induced condition : with unspecified complication Qualified Code(s): F10.239 - Alcohol dependence with withdrawal, unspecified - Discharge Dispostion Condition at time of disposition: Guarded Decision to Admit order: Yes - Referrals - Patient Instructions - Post Discharge Activity
[2017-09-20 19:34] LABS: INR 0.9 (0.82-1.09); PROTHROMBIN TIME (PATIENT) 10.2 SEC (9.7-13.0)
[2017-09-20 19:37] LABS: ACTIVATED PTT 32.2 SECONDS (25.2-36.5)
[2017-09-20] MEDS ORDERED: SODIUM CHLORIDE 0.9% 1000 ML INFUS.BAG IV ONE (20:15)
[2017-09-20] MEDS ORDERED: levETIRAcetam 500 MG/5 ML INJECTION VIAL IVPB ONE ×2 (20:40→21:33)
--- NOTE | 2017-09-20 20:54 | PDOC ---
*Physical Exam - Vital Signs Last Vital Signs Temp Pulse Resp BP Pulse Ox 98.8 F 80 16 144/73 100 09/20/17 17:48 09/20/17 17:48 09/20/17 17:48 09/20/17 17:48 09/20/17 18:30 ED Treatment Course - LABORATORY CBC & Chemistry Diagram: 09/20/17 18:30 09/20/17 18:30 - ADDITIONAL ORDERS Additional order review: Laboratory Results 09/20/17 09/20/17 09/20/17 19:05 19:05 18:30 PT with INR 10.20 INR 0.90 PTT (Actin FS) 32.2 Sodium 142 Potassium 4.1 Chloride 107 Carbon Dioxide 26 Anion Gap 9 BUN 19 H Creatinine 1.2 Creat Clearance w eGFR > 60 Random Glucose 136 H D Lactic Acid 3.1 H* Calcium 8.8 Total Bilirubin 0.2 AST 18 D ALT 30 Alkaline Phosphatase 78 Troponin I 0.37 H Total Protein 6.6 Albumin 3.1 L 09/20/17 18:30 RBC 4.41 MCV 92.3 MCHC 33.2 RDW 13.0 MPV 9.3 Neutrophils % 55.7 Lymphocytes % 21.7 Monocytes % 11.9 H Eosinophils % 9.7 H Basophils % 1.0 Medical Decision Making - Medical Decision Making 09/20/17 20:50 called because pt was unresponsive. Pt however had stable VS. It appears that pt was post ictal. Ordered Ativan 1mg and Keppra 1gram IV. Will get Brain Ct scan *DC/Admit/Observation/Transfer Diagnosis at time of Disposition: Altered mental status - Referrals - Patient Instructions - Post Discharge Activity
[2017-09-20] MEDS ORDERED: LORazepam 2 MG/ML SDV VIAL ONE (21:25)
[2017-09-20] MEDS ORDERED: SODIUM CHLORIDE 0.9% 500 ML INFUS.BAG IV ONE (21:41)
[2017-09-20 21:56] LABS: URINE APPEARANCE CLEAR; URINE BILIRUBIN NEGATIVE (<2.0 mg/dL); URINE COLOR STRAW; URINE GLUCOSE (UA) NEGATIVE (NEGATIVE); URINE KETONE NEGATIVE (NEGATIVE); URINE LEUK ESTERASE NEGATIVE (NEGATIVE); URINE NITRITE NEGATIVE (NEGATIVE); URINE PROTEIN NEGATIVE (NEGATIVE); URINE UROBILINOGEN NEGATIVE mg/dL (0.2-1.0)
[2017-09-20 22:41] LABS: OPIATES, URI NEGATIVE ng/ml (CUTOFF=300); URINE AMPHETAMINES NEGATIVE ng/ml (CUTOFF=500); URINE BARBITURATES NEGATIVE ng/ml (CUTOFF=200)
[2017-09-20 22:42] LABS: METHADONE, UR NEGATIVE ng/ml (CUTOFF=300); PHENCYCLIDINE,URINE NEGATIVE ng/ml (CUTOFF=25)
[2017-09-20 22:43] LABS: COCAINE, UR POSITIVE ng/ml (CUTOFF=300); URINE BENZODIAZEPINES POSITIVE ng/ml (CUTOFF=200)
--- NOTE | 2017-09-21 00:18 | PN ---
Teaching Attending Note Name of Resident: Joselo Viera ATTENDING PHYSICIAN STATEMENT I saw and evaluated the patient. I reviewed the resident's note and discussed the case with the resident. I agree with the resident's findings and plan as documented. SUBJECTIVE: Patient is a 52 year old man with history of Acute CO in 2009 s/p stents in [facility], HTN, schizophrenia, CVA with residual left sided weakness, abuse of alcohol, cocaine and marijuana currently getting Alcohol Detox at [facility]. He was found slurring his speech and extremely weak on the left side complaining of chest pain. On arrival in the ER he was non-responsive to sternal rub but had normal vital signs. He denied taking drugs today. Pupils non-pinpoint and Narcan was not given. He was noted have some twitching arm movements and he was given Ativan and Keppra for seizure. OBJECTIVE: Sedated. Somnolent but arousable. Vital Signs Period Temp Pulse Resp BP Sys/Altman Pulse Ox Last 24 Hr 98.8 F 62-80 15-22 115-147/64-83 100-100 HEENT: No Jaundice, eye redness or discharge, PERRLA, EOMI. Normocephalic, atraumatic. External ears are normal and hearing is grossly intact. No nasal discharge. Neck: Supple, nontender. No palpable adenopathy or thyromegaly. No JVD Chest: Good effort. Clear to auscultation and percussion. Heart: Regular. No S3 or rub; soft systolic murmur Abdomen: Not distended, soft, nontender and no HSM. No rebound or guarding. Normoactive bowel sounds. Ext: Peripheral pulses intact. No leg edema. Skin: Warm and dry. No petechiae, rash or ecchymosis. Neuro: Incomplete exam - Somnolent/sedated. Oriented to person. I could not discern the left hemiparesis that was described in his PMH. Sensation grossly intact in all four extremities. Home Medications Medication Instructions Recorded Albuterol Sulfate [Proventil HFA 2 inh IH Q4H PRN #1 hfa.aer.ad 04/21/16 Inhaler -] Aspirin [ASA -] 81 mg PO DAILY #30 tab.chew 10/13/16 Lisinopril [Prinivil] 5 mg PO DAILY #30 tablet 10/13/16 Paroxetine HCl [Paxil -] 20 mg PO DAILY #30 tablet 03/04/17 Quetiapine Fumarate [Seroquel -] 200 mg PO HS #30 tab 03/04/17 Abnormal Lab Results 09/20/17 09/20/17 09/20/17 18:30 18:30 19:05 Monocytes % 11.9 H Eosinophils % 9.7 H BUN 19 H Random Glucose 136 H D Lactic Acid 3.1 H* Troponin I 0.37 H Albumin 3.1 L Ur Specific [place] 09/20/17 21:45 Monocytes % Eosinophils % BUN Random Glucose Lactic Acid Troponin I Albumin Ur Specific [place] 1.051 H ASSESSMENT AND PLAN: 1. Altered Mental Status - Etiology is unclear. Prompt resolution of lactic acidosis and witnessed twitching in the ER support recent vigorous muscle activity - seizure - that may have led to lactic acid generation. His last drink is reported to have been two days ago and alcohol level is not yet available. Urine toxicology shows cocaine, benzodiazepines and marijuana. Head CT shows mild ventricular dilatation and and no infarct or hemorrhage - he is outside the window for TPa. An MRI of his brain will be obtained once alert. Check fasting lipid profile, continue asprin and treat with Lipitor 80 mg and monitor on Telmetry. Will continue Keppra 750 mg IV q 12 hours, get EEG, monitor for alcohol withdrawal, treat with thiamine and folic acid, check Mg, P levels, place on [facility] alcohol withdrawal protocol and implement fall precautions. Check HbA1c in view of hyperglycemia. 2. Elevated troponin - Etiology unclear. Has CAD though he is now painfree, chest pain was part of his original complaints. No acute changes of ACS on EKG. Will monitor on telemetry, trend troponin and rule out ACS. Get ECHO. 3. Hypoalbuminemia - Possibly due to combined effects of malnutrition and inflammation associated with comorbid chronic conditions. Will ensure adequate dietary protein intake and also consult dedenter. 4. Polysubstsnce abuse - Will provide him all the necessary assistance , counseling and positive reinforcement to facilitate discontinuation of abuse behavior and discharge to [facility] for Detox. 5. DVT prophylaxis - Heparin 5000u sq tid. 6. Advance directives - Full code
--- NOTE | 2017-09-21 02:19 | HP ---
CHIEF COMPLAINT: Chest pain PCP: HISTORY OF PRESENT ILLNESS: Difficult to obtain clear hx from pt. pt was heavily. hx obtained from EMR chart review. Per pt, he was not feeling well last night. was experiencing sharp sudden CP w/ SOB, L sided weakness, and N/V which was non bloody. Pt's last drink was 2 days ago. He denied taking drugs today. Pupils non-pinpoint and Narcan was not given. Per Dr. Esquivel note: 52m with pmh of Mi in 2009 s/p stents in [facility], HTN, schizophrenia, CVA with residual left sided weakness, abuse of etoh, cocaine and marijuana currently getting Alcohol Detox at [facility], found slurring his speech and extremely weak on the left side complaining of chest pain. Note from [facility]: Patient last night was c/o chest pain w/o relief from Mylanta. Patient alert and oriented. C/o sharp mid-sternal chest pain w/o radiation. States also having SOB. Lungs CTA. R: 18; Heart rate-regular rhythm at 76. Murmur noted. EKG indicates ST changes. B/P: 138.60; T: 97.5; Hx: old NH and angioplasty in 2009, asthma, HTN, and CVA w/ residual effects of (L) arm weakness w/ mild contracture of hand. Hx. Alcohol and cocaine use disorder. Patient informed of need for ER evaluation of chest pain. Patient to be transported by [facility] to [facility] ER. Report given to Dr. Esquivel. Arrived non-responsive to sternal rub in the ED. Normal vital on monitor, with on/off responsive episodes. Denies taking drugs today. Pupils non-pinpoint. No narcan given. 09/20/17 19:03 ER course was notable for: (1)Pt was alert in ambulance. In the ED became unresponsive and was noted to have minor hand twiches along w/ nystagmus. Was thought to be having seizure activity and was given dose of Ativan and Keppra. (2) (3) Recent Travel: PAST MEDICAL HISTORY: As mentioned above including HLD, asthma PAST SURGICAL HISTORY: Social History: Smokinppd for 10 years. Has cut down in the past 2 years Alcohol:1/2 pint of gin every other day Drugs: etoh, marijuana, cocaine. [facility] for etoh detox Family History: Allergies Penicillins Allergy (Severe, Verified 09/20/17 18:19) Hives mri dye Allergy (Severe, Uncoded 09/20/17 18:19) Hives HOME MEDICATIONS: Home Medications Medication Instructions Recorded Albuterol Sulfate [Proventil HFA 2 inh IH Q4H PRN #1 hfa.aer.ad 04/21/16 Inhaler -] Aspirin [ASA -] 81 mg PO DAILY #30 tab.chew 10/13/16 Lisinopril [Prinivil] 5 mg PO DAILY #30 tablet 10/13/16 Paroxetine HCl [Paxil -] 20 mg PO DAILY #30 tablet 03/04/17 Quetiapine Fumarate [Seroquel -] 200 mg PO HS #30 tab 03/04/17 REVIEW OF SYSTEMS As mentioned above in HPI PHYSICAL EXAMINATION Vital Signs - 24 hr 09/20/17 09/20/17 09/20/17 17:48 18:30 20:00 Temperature 98.8 F Pulse Rate 80 Pulse Rate [ 71 Apical] Respiratory 16 22 Rate Blood Pressure 144/73 Blood Pressure 121/64 [Right Arm] O2 Sat by Pulse 100 100 Oximetry (%) 09/20/17 09/20/17 09/20/17 20:30 20:55 23:00 Temperature Pulse Rate Pulse Rate [ 70 65 62 Apical] Respiratory 15 21 19 Rate Blood Pressure Blood Pressure 115/64 124/72 147/83 [Right Arm] O2 Sat by Pulse 100 Oximetry (%) GENERAL: Thin, lying in bed Somnolent Ox2 did not know where he was. in no acute distress. HEAD: Normal with no signs of trauma. EYES: Pupils equal, round and reactive to light although reaction was sluggish, extraocular movements intact w/ R sided/beating nystagmus, sclera anicteric, conjunctiva clear. No lid lag. EARS, NOSE, THROAT: normal, nares patent, oropharynx clear without exudates. Dry mucous membranes. NECK: Normal range of motion, supple without lymphadenopathy, JVD, or masses. LUNGS: Breath sounds equal, clear to auscultation bilaterally. No wheezes, and no crackles. No accessory muscle use. HEART: RRR, normal S1 and S2 without rub or gallop. Systolic murmur noted ABDOMEN: Soft, nontender, not distended, normoactive bowel sounds, no guarding, no rebound, no masses. No hepatomegaly or splenomegaly. MUSCULOSKELETAL: Normal range of motion at all joints. No bony deformities or tenderness. No CVA tenderness. UPPER EXTREMITIES: 2+ pulses, warm, well-perfused. No cyanosis. No clubbing. No peripheral edema. LOWER EXTREMITIES: 2+ pulses, warm, well-perfused. No calf tenderness. No peripheral edema. NEUROLOGICAL: Cranial nerves II-XII intact. Normal speech. R sided/beating nystagmus. Diminished strength (4/5) and sensation on L side compared to R side SKIN: Warm, dry, normal turgor, no rashes or lesions noted, normal capillary refill. Laboratory Results - last 24 hr 09/20/17 09/20/17 09/20/17 18:30 18:30 19:05 WBC 5.4 RBC 4.41 Hgb 13.5 Hct 40.7 MCV 92.3 MCH 30.6 MCHC 33.2 RDW 13.0 Plt Count 227 MPV 9.3 Absolute Neuts (auto) 3.0 Neutrophils % 55.7 Lymphocytes % 21.7 Monocytes % 11.9 H Eosinophils % 9.7 H Basophils % 1.0 Nucleated RBC % 0 PT with INR 10.20 INR 0.90 PTT (Actin FS) 32.2 Sodium 142 Potassium 4.1 Chloride 107 Carbon Dioxide 26 Anion Gap 9 BUN 19 H Creatinine 1.2 Creat Clearance w eGFR > 60 Random Glucose 136 H D Lactic Acid Calcium 8.8 Total Bilirubin 0.2 AST 18 D ALT 30 Alkaline Phosphatase 78 Troponin I 0.37 H Total Protein 6.6 Albumin 3.1 L Urine Color Urine Appearance Urine pH Ur Specific Bartlett Urine Protein Urine Glucose (UA) Urine Ketones Urine Blood Urine Nitrite Urine Bilirubin Urine Urobilinogen Ur Leukocyte Esterase Opiates Screen Methadone Screen Barbiturate Screen Phencyclidine Screen Ur Amphetamines Screen MDMA (Ecstasy) Screen Benzodiazepines Screen Cocaine Screen U Marijuana (THC) Screen 09/20/17 09/20/17 09/20/17 19:05 20:22 21:45 WBC RBC Hgb Hct MCV MCH MCHC RDW Plt Count MPV Absolute Neuts (auto) Neutrophils % Lymphocytes % Monocytes % Eosinophils % Basophils % Nucleated RBC % PT with INR INR PTT (Actin FS) Sodium Potassium Chloride Carbon Dioxide Anion Gap BUN Creatinine Creat Clearance w eGFR Random Glucose Lactic Acid 3.1 H* 1.3 Calcium Total Bilirubin AST ALT Alkaline Phosphatase Troponin I Total Protein Albumin Urine Color Straw Urine Appearance Clear Urine pH 8.0 D Ur Specific Bartlett 1.051 H Urine Protein Negative Urine Glucose (UA) Negative Urine Ketones Negative Urine Blood Negative Urine Nitrite Negative Urine Bilirubin Negative Urine Urobilinogen Negative Ur Leukocyte Esterase Negative Opiates Screen Methadone Screen Barbiturate Screen Phencyclidine Screen Ur Amphetamines Screen MDMA (Ecstasy) Screen Benzodiazepines Screen Cocaine Screen U Marijuana (THC) Screen 09/20/17 09/21/17 21:45 00:36 WBC RBC Hgb Hct MCV MCH MCHC RDW Plt Count MPV Absolute Neuts (auto) Neutrophils % Lymphocytes % Monocytes % Eosinophils % Basophils % Nucleated RBC % PT with INR INR PTT (Actin FS) Sodium Potassium Chloride Carbon Dioxide Anion Gap BUN Creatinine Creat Clearance w eGFR Random Glucose Lactic Acid Calcium Total Bilirubin AST ALT Alkaline Phosphatase Troponin I 0.41 H Total Protein Albumin Urine Color Urine Appearance Urine pH Ur Specific Bartlett Urine Protein Urine Glucose (UA) Urine Ketones Urine Blood Urine Nitrite Urine Bilirubin Urine Urobilinogen Ur Leukocyte Esterase Opiates Screen Negative Methadone Screen Negative Barbiturate Screen Negative Phencyclidine Screen Negative Ur Amphetamines Screen Negative MDMA (Ecstasy) Screen Negative Benzodiazepines Screen Positive Cocaine Screen Positive U Marijuana (THC) Screen Positive ASSESSMENT/PLAN: 52m with pmh of [place] in 2009 s/p stents in [facility], HTN, schizophrenia, CVA with residual left sided weakness, abuse of etoh, cocaine and marijuana currently getting Alcohol Detox at [facility], presented from [facility] c/o L sided CP, slurring of speech and L sided weakness. In the ED became unresponsive and was was thought to be having seizure activity which was ctl w/ Ativan and Keppra. #AMS - Etiology is unclear although possible pt was having EtOH withdrawl seizures. Prompt resolution of lactic acidosis supports recent vigorous muscle activity - seizure - that may have led to lactic acid generation. It is unclear when he had his last drink (per pt 2 days ago) and alcohol level is not yet available. -check Etoh level -Head CT shows mild ventricular dilatation, MRI is ordered. -continue to monitor for etoh withdrawal -give thiamine and folic acid -check Mg, P levels, place on CIWA lbrium alcohol withdrawal prtocol -implement fall precautions. #Alcohol withdrawl seizures - -monitor for EtOH withdrawal -keppra IVPB q12h for withdrawl sxs and agitation -implement FALL PRECAUTIONS, -treat with thiamine and folic acid. -detox consulted #Elevated troponin - Etiology unclear. Has pmh CAD and was c/o CP though he is now pain free. No acute changes of ACS on EKG. - monitor on telemetry -trend troponin and rule out ACS. -order ECHO -home dose ASA #Polysubstsance abuse - urine toxicology shows cocaine, benzodiazepines and marijuana -provide counseling and positive reinforcement to facilitate discontinuation of abuse behavior and discharge to [facility] for Detox. #hyperglycemia -f/u HbA1c #HTN and schizophrenia -c/w home dose #FEN -IV NS 50cc/hr -replete electrolytes as needed -low sodium diet #DVT ppx -SQH 5000U tid #Dispo -admit to tele -full code Visit type - Emergency Visit Emergency Visit: Yes ED Registration Date: 09/21/17 Care time: The patient presented to the Emergency Department on the above date and was hospitalized for further evaluation of their emergent condition. - New Patient This patient is new to me today: Yes Date on this admission: 09/21/17 - Critical Care Critical Care patient: No Hospitalist Screening - Colonoscopy Questionnaire Colonoscopy Questionnaire: Colonoscopy Questionnaire - Patient: 50 - 75 years old and never had a screening colonoscopy: Unknown History of colon or rectal polyps, or CA: Unknown History of IBD, Crohn's disease or UC: Unknown History of abdominal radiation therapy as a child: Unknown - Relative: 1 with colon or rectal CA, or polyps at age 60 or younger: Unknown Colon or rectal CA diagnosed at age 45 or younger: Unknown Multiple relatives with colon or rectal CA: Unknown - Outcome: Screening Result: Negative Screen
[2017-09-21] MEDS ORDERED: SODIUM CHLORIDE 1,000 ML IV SCH (02:30)
[2017-09-21] MEDS ORDERED: HEPARIN NA (PORCINE) 5,000 UNITS/ML 1ML VIAL SQ SCH ×2 (02:30→08:00)
[2017-09-21] MEDS ORDERED: ALBUTEROL SO4 8 GM HFA INHALER IH PRN (02:38)
[2017-09-21] MEDS ORDERED: chlordiazePOXIDE HCL 25 MG CAPSULE PO SCH (05:00)
[2017-09-21] MEDS ORDERED: chlordiazePOXIDE HCL 25 MG CAPSULE PO PRN (07:08)
[2017-09-21] MEDS ORDERED: LORazepam 2 MG/ML SDV VIAL ONE (08:24)
[2017-09-21] MEDS ORDERED: HALOPERIDOL LACTATE 5 MG/ML ONE (08:27)
[2017-09-21] MEDS ORDERED: HALOPERIDOL LACTATE 5 MG/ML IM ONE (09:52)
[2017-09-21] MEDS ORDERED: LISINOPRIL 5 MG TABLET (FP) PO SCH (10:00)
[2017-09-21] MEDS ORDERED: ASPIRIN COATED 81 MG TABLET.EC PO SCH (10:00)
[2017-09-21] MEDS ORDERED: levETIRAcetam 500 MG/5 ML INJECTION VIAL IVPB SCH (10:00)
[2017-09-21] MEDS ORDERED: THIAMINE HCL 100 MG TABLET (FP) PO SCH (10:00)
[2017-09-21] MEDS ORDERED: PARoxetine HCL 20 MG TABLET (FP) PO SCH (10:00)
[2017-09-21] MEDS ORDERED: FOLIC ACID 1 MG TABLET (FP) PO SCH (10:00)
[2017-09-21 10:39] LABS: BASO % 0.6 % (0-2.0); EOS % 8.5 % (0-4.5); HEMOGLOBIN 13.4 GM/dL (11.7-16.9); LYMPH % 16.2 % (8-40); MCH 30.2 pg (25.7-33.7); MCHC 32.7 g/dl (32.0-35.9); MEAN CELL VOLUME 92.3 fl (80-96); MEAN PLT VOLUME 8.9 fl (7.5-11.1); MONO % 11.6 % (3.8-10.2); NEUT % 63.1 % (42.8-82.8); PLATELET COUNT 231 K/MM3 (134-434); RBC 4.44 M/mm3 (4.00-5.60); WHITE BLOOD COUNT 4.8 K/mm3 (4.0-10.0)
--- NOTE | 2017-09-21 10:48 | CONSULT ---
Consult Detox [facility] Reason for Current Admission/Consult: Pt was transferred here from [facility] detox for altered mental status. Pt was on a librium detox protocol for alcohol use disorder. Pt has extensive cardiovascular dz- with h/o CVA and stent placement in the past - History History of Present Illness: Pt is not able to carry a conversation at the present time as he just rec'd ativan and haldol for agitation. Pt was in [facility] for about 2 days when he complained of chest pain not relieved with mylanta. Pt is here to r/o TN and/or CVA. Pt was seen by me 2 days ago and at that time had no complaints and was taking librium without problems for alcohol withdrawal. 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 Cardio/Vascular: Yes: CAD Psych: Yes: Addictions - Past Surgical History Past Surgical History: Yes: None - Significant Medical Findings: pt is lethargic, able to open eyes and answer a question but falls back asleep CIWA Score - CIWA Score Muscle Tremors: None Anxiety: 0-No Anxiety, at Ease Agitation: 0-Normal Activity Paroxysmal Sweats: No Perspiration Orientation: 0-Oriented Tacttile Disturbances: 0-None Auditory Disturbances: 0-None Visual Disturbances: 0-None Headache: 0-None Present (pt just recieved ativan and haldol) Assessment Plan - Diagnosis (1) Altered mental status Status: Acute Qualifiers: Altered mental status type: unspecified Qualified Code(s): R41.82 - Altered mental status, unspecified (2) Alcohol dependence with uncomplicated withdrawal Status: Chronic - Plan Plan: Pt is day #4 of the librium detox protocol for alcohol withdrawal. Pt does not need to be on protocol and the pt is sedated at the present time. Will start patient on librium prn dosing. After pt is medically stable, pt can be transferred to [facility] for rehab if pt agrees. Please call us back if we can be of further assistance. - Medication Detox Regimen/Protocol: Librium
[2017-09-21 11:09] LABS: ALBUMIN 3.1 g/dl (3.4-5.0); ALK PHOS 64 U/L (45-117); ANION GAP 5 (8-16); BILIRUBIN,TOTAL 0.3 mg/dL (0.2-1.0); BLOOD UREA NITROGEN 16 mg/dL (7-18); CHLORIDE 109 mmol/L (98-107); CO2 27 mmol/L (21-32); CREATININE 0.9 mg/dL (0.7-1.3); GLUCOSE,RANDOM 95 mg/dL (74-106); POTASSIUM 4.6 mmol/L (3.5-5.1); SGOT/AST 19 U/L (15-37); SGPT/ALT 29 U/L (12-78); SODIUM 141 mmol/L (136-145); TOT PROT 6.7 g/dl (6.4-8.2)
--- NOTE | 2017-09-21 11:39 | CON.CARD ---
Consult Consult Specialty:: cardiology - History of Present Illness History of Present Illness: 52m with pmh of Mi in 2010 s/p stents in [facility], HTN, schizophrenia, CVA with residual left sided weakness, abuse of etoh, cocaine and marijuana currently getting Alcohol Detox at [facility], found slurring his speech and extremely weak on the left side complaining of chest pain. Note from [facility]: Patient last night was c/o chest pain w/o relief from Mylanta. Patient alert and oriented. C/o sharp mid-sternal chest pain w/o radiation. States also having SOB. Lungs CTA. R: 18; Heart rate-regular rhythm at 76. Murmur noted. EKG indicates ST changes. B/P: 138.60; T: 97.5; Hx: old [place] and angioplasty in 2009, asthma, HTN, and CVA w/ residual effects of (L) arm weakness w/ mild contracture of hand. Hx. Alcohol and cocaine use disorder. Patient informed of need for ER evaluation of chest pain. Patient to be transported by [facility] to [facility] ER. Report given to Dr. Esquivel. Arrived non-responsive to sternal rub in the ED. Normal vital on monitor, with on/off responsive episodes. Denies taking drugs today. Pupils non-pinpoint. No narcan given. 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 Cardio/Vascular: Yes: CAD Psych: Yes: Addictions - Past Surgical History Past Surgical History: Yes: None - Alcohol/Substance Use Hx Alcohol Use: Yes - Smoking History Smoking history: Unknown if ever smoked Have you smoked in the past 12 months: Yes Aproximately how many cigarettes per day: 3 Home Medications - Allergies Allergies/Adverse Reactions: Allergies Allergy/AdvReac Type Severity Reaction Status Date / Time Penicillins Allergy Severe Hives Verified 09/20/17 18:19 mri dye Allergy Severe Hives Uncoded 09/20/17 18:19 - Home Medications Home Medications: Ambulatory Orders Albuterol Sulfate [Proventil HFA Inhaler -] 2 inh IH Q4H PRN #1 hfa.aer.ad 04/21 Aspirin [ASA -] 81 mg PO DAILY #30 tab.chew 10/13/16 Lisinopril [Prinivil] 5 mg PO DAILY #30 tablet 10/13/16 Paroxetine HCl [Paxil -] 20 mg PO DAILY #30 tablet 03/04/17 Quetiapine Fumarate [Seroquel -] 200 mg PO HS #30 tab 03/04/17 Family Disease History - Family Disease History Family Disease History: Diabetes: Father (), Mother (), Other: Father, Mother Vital Signs: Vital Signs Temperature 98 F 09/21/17 08:05 Pulse Rate 81 09/21/17 08:05 Respiratory Rate 17 09/21/17 08:05 Blood Pressure 118/74 09/21/17 08:05 O2 Sat by Pulse Oximetry (%) 99 09/21/17 08:05 - Other Data Labs, Other Data: CBC, BMP 09/21/17 10:15 09/21/17 10:15 INR, PTT INR 0.90 (0.82-1.09) 09/20/17 19:05 Troponin, BNP 09/20/17 09/21/17 18:30 00:36 Troponin I 0.37 H 0.41 H Troponin, BNP 09/20/17 09/21/17 18:30 00:36 Troponin I 0.37 H 0.41 H Problem List - Problems (1) Alcohol dependence Code(s): F10.20 - ALCOHOL DEPENDENCE, UNCOMPLICATED (2) Cannabis dependence Code(s): F12.20 - CANNABIS DEPENDENCE, UNCOMPLICATED (3) Chest pain at rest Code(s): R07.9 - CHEST PAIN, UNSPECIFIED (4) Cocaine dependence Assessment/Plan: avoid beta blockers cocaine; ?hx "asthma" since 7 yrs old, per pt). Code(s): F14.20 - COCAINE DEPENDENCE, UNCOMPLICATED (5) Hyperlipidemia Code(s): E78.5 - HYPERLIPIDEMIA, UNSPECIFIED Qualifiers: Hyperlipidemia type: unspecified Qualified Code(s): E78.5 - Hyperlipidemia , unspecified (6) Hypertension Code(s): I10 - ESSENTIAL (PRIMARY) HYPERTENSION Qualifiers: Hypertension type: essential hypertension Qualified Code(s): I10 - Essential (primary) hypertension (7) Insomnia Code(s): G47.00 - INSOMNIA, UNSPECIFIED Qualifiers: Insomnia type: unspecified Qualified Code(s): G47.00 - Insomnia, unspecified (8) Nicotine dependence Code(s): F17.200 - NICOTINE DEPENDENCE, UNSPECIFIED, UNCOMPLICATED Qualifiers: Nicotine product type: cigarettes Substance use status: in withdrawal Qualified Code(s): F17.213 - Nicotine dependence, cigarettes, with withdrawal (9) PPD positive Code(s): R76.11 - NONSPECIFIC REACTION TO SKIN TEST W/O ACTIVE TUBERCULOSIS (10) Paranoid schizophrenia Code(s): F20.0 - PARANOID SCHIZOPHRENIA (11) Elevated troponin I level Assessment/Plan: normal CK. EKG: sinus bradycardia; nonspecific T wave changes. Pt has multiple CAD risks, though substance abuse, CHF, HTN, stress may be inducing "demand ischemia" TNI elevation. F/u ECHO for LVEF, regional wall motion (2nd Ekg says "septal infarct", though this may due to precordial lead placement; would repeat the study, as well as check ECHO wall motion). TSh lipid levels. Ideally, pt should have evaluation for CAD when stable (stress MIBI), but he is presently refusing all treatment. Code(s): R74.8 - ABNORMAL LEVELS OF OTHER SERUM ENZYMES (12) Lethargy Code(s): R53.83 - OTHER FATIGUE
--- NOTE | 2017-09-21 12:00 | EKG ---
Test Reason : Blood Pressure : / mmHG Vent. Rate : 056 BPM Atrial Rate : 056 BPM P-R Int : 196 ms QRS Dur : 094 ms QT Int : 420 ms P-R-T Axes : 061 055 063 degrees QTc Int : 405 ms SINUS BRADYCARDIA SEPTAL INFARCT , AGE UNDETERMINED ABNORMAL ECG Confirmed by MD JEFF, LYUBOV ([id number]) on 09/21/2017 11:59:59 AM Referred By: Confirmed By:LYUBOV AGUILAR MD
--- NOTE | 2017-09-21 12:03 | EKG ---
Test Reason : Blood Pressure : / mmHG Vent. Rate : 076 BPM Atrial Rate : 076 BPM P-R Int : 182 ms QRS Dur : 086 ms QT Int : 386 ms P-R-T Axes : 078 050 054 degrees QTc Int : 434 ms NORMAL SINUS RHYTHM POSSIBLE LEFT ATRIAL ENLARGEMENT NONSPECIFIC T WAVE ABNORMALITY ABNORMAL ECG Confirmed by MD JEFF, LYUBOV ([id number]) on 09/21/2017 12:03:05 PM Referred By: Confirmed By:LYUBOV AGUILAR MD
[2017-09-21 13:27] LABS: PHOSPHOROUS 1.7 mg/dL (2.5-4.9)
[2017-09-21 16:23] LABS: CHOLESTEROL 168 mg/dL (50-200); TRIGLYCERIDES 134 mg/dL (35-160)
[2017-09-21 16:24] LABS: HDL CHOLESTEROL 49 mg/dL (40-60)
--- NOTE | 2017-09-21 16:48 | ECHO ---
Name: ROMIE CASIANO Exam:Adult Echocardiogram Study Date: 09/21/2017 09:31 AM Reason For Study: Chest pain Height: 72 in Weight: 245 lb BSA: 2.3 m2 MMode/2D Measurements & Calculations IVSd: 0.97 cm Ao root diam: 3.5 cm EDV(Teich): 129.1 ml LVIDd: 5.2 cm LA dimension: 3.3 cm LVPWd: 0.93 cm ACS: 2.5 cm Ao root area: 9.8 cm2 Doppler Measurements & Calculations MV E max clive: 59.7 cm/sec Ao V2 max: 161.0 cm/sec PA V2 max: 133.0 cm/sec MV A max clive: 56.8 cm/sec Ao max P.4 mmHg PA max P.1 mmHg MV E/A: 1.1 Ao V2 mean: 129.4 cm/sec PA V2 mean: 96.6 cm/sec Ao mean P.3 mmHg PA mean P.3 mmHg Ao V2 VTI: 28.2 cm PA V2 VTI: 23.8 cm Lat E/e': 12.15 [facility] E/e': .6 Procedure A complete two-dimensional transthoracic echocardiogram was performed (2D, M-mode, Doppler and color flow Doppler). Left Ventricle The left ventricular size, thickness and function are normal. Left ventricular systolic function is n ormal. Ejection Fraction = 65%. Grade I diastolic dysfunction, (abnormal relaxation pattern). Patient was in normal sinus rhythm. No regional wall motion abnormalities noted. Right Ventricle The right ventricle is normal in size and function. Atria Normal left and right atrial size and function. Mitral Valve The mitral valve is grossly normal. Tricuspid Valve The tricuspid valve is not well visualized, but is grossly normal. There was insufficient TR detected to calculate RV systolic pressure. Aortic Valve There is mild to moderate aortic valve thickening. There is mild aortic sclerosis.;. No hemodynamical ly significant valvular aortic stenosis. Pulmonic Valve The pulmonic valve is not well visualized. Great Vessels The aortic root is normal size. Pericardium/Pleura There is no pericardial effusion. Interpretation Summary The left ventricular size, thickness and function are normal Grade I diastolic dysfunction, (abnormal relaxation pattern). Patient was in normal sinus rhythm Normal left and right atrial size and function. No hemodynamically significant valvular aortic stenosis. There was insufficient TR detected to calculate RV systolic pressure. MD Bobby Goodman 09/21/2017 04:47 PM
[2017-09-21 16:51] VITALS: BP 122/86; PULSE 85; TEMP 98.5
--- NOTE | 2017-09-21 17:09 | PN ---
Teaching Attending Note Name of Resident: Yoko Sauceda ATTENDING PHYSICIAN STATEMENT I saw and evaluated the patient. I reviewed the resident's note and discussed the case with the resident. I agree with the resident's findings and plan as documented. SUBJECTIVE:states he feels fine now and just wants to go back to [facility] for detox. states he wants to complete rehab and does not want any further testing at this time as he just wants to get sober. denies Cp, SOB, fever, chills, palpitations, N/V/C/D, numbness/weakness, weakness on one side more than the other. auditory/visual hallucinations OBJECTIVE: Last Vital Signs Temp Pulse Resp BP Pulse Ox 98.5 F 85 17 122/86 99 09/21/17 16:49 09/21/17 16:49 09/21/17 16:49 09/21/17 16:49 09/21/17 16:49 General NAD, A&O x3 CV s1 s2 RRR no murmur/rub/gallop no chest wall tenderness Lungs CTA B/l no wheezing/rales/rhonchi Abdomen soft NT/ND extremities no pedal edema, no tremor from outstretched hand Neuro CN II-XII grossly intact, strength and sensation grossly intact in all 4 extremities no pronator drift. refuses to ambulate ASSESSMENT AND PLAN: 52yo m with PMH CAD s/p stent, HTN, schizo, CVA with questionable L sided weakness, and continuous polysubstance abuse (cocaine snorts does not inject/ ETOH/THC) presented to the Er from [facility] with acute metabolic encephalopathy assoc iwth slurred speech 1. Acute metabolic encephalopathy- appears to be at baseline. concern for withdrawal seizure although can not r/o CVA/TIA. initial head CT is negative. recommended MRI to further evaluate however pt is refusing. explained risks of having CVA is high based on hx and presentation. states he just wants to go back to [facility] for rehab. 2. elevated troponin- 0.37-0.41- 0.3. no assoc CP. possible cocaine induced. seen by cardio and recommending echo. pt is refusing at this time. states he does not want a workup for his heart. understands the risks assoc iwth delayed care 3. continuous polysubstance abuse- CIWA 2. currently on libirum protocol. states his main concern is completing detox and rehab. on thiamine/folate/MVI 4. D/w with patient in detail regarding concern for CVA and ACS. informed him of risks assoc with out completing workup. states he understands risk but his main concern is his sobriety and getting clean. states he will follow up with a doctor once he completes inpatient rehab. understands he can complete detox here and get necessary testing. states he does not want it done here but wants to go to rehab. will d/c patient so that he may return to [facility]. if pt was to sign out AMA they would refuse to him to return. pt expresses clear understanding of risks and benefits of treatment.
--- NOTE | 2017-09-21 17:11 | DS ---
Physical Exam: SUBJECTIVE: Patient seen and examined in the Emergency Room. Patient states he wanted to complete rehab, does not want any more testing and wanted to go back to [facility] for detox. Denies chest pain, SOB, Fever, chills, nausea, vomiting, diarrhea, constipation. OBJECTIVE: Vital Signs Period Temp Pulse Resp BP Sys/Altman Pulse Ox Last 24 Hr 97.9 F-98.8 F 62-85 15-22 109-147/64-86 97-100 PHYSICAL EXAM GENERAL: The patient is awake, alert, and fully oriented, in no acute distress. LUNGS: Breath sounds equal, clear to auscultation bilaterally, no wheezes, no crackles. HEART: Regular rate and rhythm, S1, S2 without murmur, rub or gallop. ABDOMEN: Soft, nontender, nondistended. EXTREMITIES: No tremors, no edema LABS Laboratory Results - last 24 hr 09/20/17 09/20/17 09/20/17 18:30 18:30 19:05 WBC 5.4 RBC 4.41 Hgb 13.5 Hct 40.7 MCV 92.3 MCH 30.6 MCHC 33.2 RDW 13.0 Plt Count 227 MPV 9.3 Absolute Neuts (auto) 3.0 Neutrophils % 55.7 Lymphocytes % 21.7 Monocytes % 11.9 H Eosinophils % 9.7 H Basophils % 1.0 Nucleated RBC % 0 PT with INR 10.20 INR 0.90 PTT (Actin FS) 32.2 Sodium 142 Potassium 4.1 Chloride 107 Carbon Dioxide 26 Anion Gap 9 BUN 19 H Creatinine 1.2 Creat Clearance w eGFR > 60 Random Glucose 136 H D Lactic Acid Calcium 8.8 Phosphorus Magnesium Total Bilirubin 0.2 AST 18 D ALT 30 Alkaline Phosphatase 78 Creatine Kinase 160 Troponin I 0.37 H Total Protein 6.6 Albumin 3.1 L Triglycerides Cholesterol Total LDL Cholesterol HDL Cholesterol Urine Color Urine Appearance Urine pH Ur Specific Child[place] Urine Protein Urine Glucose (UA) Urine Ketones Urine Blood Urine Nitrite Urine Bilirubin Urine Urobilinogen Ur Leukocyte Esterase Opiates Screen Methadone Screen Barbiturate Screen Phencyclidine Screen Ur Amphetamines Screen MDMA (Ecstasy) Screen Benzodiazepines Screen Cocaine Screen U Marijuana (THC) Screen Alcohol, Quantitative 09/20/17 09/20/17 09/20/17 19:05 20:22 21:45 WBC RBC Hgb Hct MCV MCH MCHC RDW Plt Count MPV Absolute Neuts (auto) Neutrophils % Lymphocytes % Monocytes % Eosinophils % Basophils % Nucleated RBC % PT with INR INR PTT (Actin FS) Sodium Potassium Chloride Carbon Dioxide Anion Gap BUN Creatinine Creat Clearance w eGFR Random Glucose Lactic Acid 3.1 H* 1.3 Calcium Phosphorus Magnesium Total Bilirubin AST ALT Alkaline Phosphatase Creatine Kinase Troponin I Total Protein Albumin Triglycerides Cholesterol Total LDL Cholesterol HDL Cholesterol Urine Color Straw Urine Appearance Clear Urine pH 8.0 D Ur Specific [place] 1.051 H Urine Protein Negative Urine Glucose (UA) Negative Urine Ketones Negative Urine Blood Negative Urine Nitrite Negative Urine Bilirubin Negative Urine Urobilinogen Negative Ur Leukocyte Esterase Negative Opiates Screen Methadone Screen Barbiturate Screen Phencyclidine Screen Ur Amphetamines Screen MDMA (Ecstasy) Screen Benzodiazepines Screen Cocaine Screen U Marijuana (THC) Screen Alcohol, Quantitative 09/20/17 09/21/17 09/21/17 21:45 00:36 10:15 WBC 4.8 RBC 4.44 Hgb 13.4 Hct 41.0 MCV 92.3 MCH 30.2 MCHC 32.7 RDW 13.0 Plt Count 231 MPV 8.9 Absolute Neuts (auto) 3.0 Neutrophils % 63.1 Lymphocytes % 16.2 D Monocytes % 11.6 H Eosinophils % 8.5 H Basophils % 0.6 Nucleated RBC % 0 PT with INR INR PTT (Actin FS) Sodium Potassium Chloride Carbon Dioxide Anion Gap BUN Creatinine Creat Clearance w eGFR Random Glucose Lactic Acid Calcium Phosphorus Magnesium Total Bilirubin AST ALT Alkaline Phosphatase Creatine Kinase 143 Troponin I 0.41 H Total Protein Albumin Triglycerides Cholesterol Total LDL Cholesterol HDL Cholesterol Urine Color Urine Appearance Urine pH Ur Specific [place] Urine Protein Urine Glucose (UA) Urine Ketones Urine Blood Urine Nitrite Urine Bilirubin Urine Urobilinogen Ur Leukocyte Esterase Opiates Screen Negative Methadone Screen Negative Barbiturate Screen Negative Phencyclidine Screen Negative Ur Amphetamines Screen Negative MDMA (Ecstasy) Screen Negative Benzodiazepines Screen Positive Cocaine Screen Positive U Marijuana (THC) Screen Positive Alcohol, Quantitative 09/21/17 09/21/17 09/21/17 10:15 12:20 15:24 WBC RBC Hgb Hct MCV MCH MCHC RDW Plt Count MPV Absolute Neuts (auto) Neutrophils % Lymphocytes % Monocytes % Eosinophils % Basophils % Nucleated RBC % PT with INR INR PTT (Actin FS) Sodium 141 Potassium 4.6 Chloride 109 H Carbon Dioxide 27 Anion Gap 5 L BUN 16 Creatinine 0.9 Creat Clearance w eGFR > 60 Random Glucose 95 D Lactic Acid Calcium 9.0 Phosphorus 1.7 L Magnesium 2.0 Total Bilirubin 0.3 AST 19 ALT 29 Alkaline Phosphatase 64 D Creatine Kinase 196 274 Troponin I 0.30 H Total Protein 6.7 Albumin 3.1 L Triglycerides Cholesterol Total LDL Cholesterol HDL Cholesterol Urine Color Urine Appearance Urine pH Ur Specific [place] Urine Protein Urine Glucose (UA) Urine Ketones Urine Blood Urine Nitrite Urine Bilirubin Urine Urobilinogen Ur Leukocyte Esterase Opiates Screen Methadone Screen Barbiturate Screen Phencyclidine Screen Ur Amphetamines Screen MDMA (Ecstasy) Screen Benzodiazepines Screen Cocaine Screen U Marijuana (THC) Screen Alcohol, Quantitative < 5.0 09/21/17 15:24 WBC RBC Hgb Hct MCV MCH MCHC RDW Plt Count MPV Absolute Neuts (auto) Neutrophils % Lymphocytes % Monocytes % Eosinophils % Basophils % Nucleated RBC % PT with INR INR PTT (Actin FS) Sodium Potassium Chloride Carbon Dioxide Anion Gap BUN Creatinine Creat Clearance w eGFR Random Glucose Lactic Acid Calcium Phosphorus Magnesium Total Bilirubin AST ALT Alkaline Phosphatase Creatine Kinase Troponin I Total Protein Albumin Triglycerides 134 Cholesterol 168 Total LDL Cholesterol 107 H HDL Cholesterol 49 Urine Color Urine Appearance Urine pH Ur Specific [place] Urine Protein Urine Glucose (UA) Urine Ketones Urine Blood Urine Nitrite Urine Bilirubin Urine Urobilinogen Ur Leukocyte Esterase Opiates Screen Methadone Screen Barbiturate Screen Phencyclidine Screen Ur Amphetamines Screen MDMA (Ecstasy) Screen Benzodiazepines Screen Cocaine Screen U Marijuana (THC) Screen Alcohol, Quantitative IMAGING CXR: No acute chest pathology CT Head: Mild ventricular dilatation is seen which may be proportionate to the degree of involutional change (versus representing subtle obstructive hydrocephalus). Correlate clinically. MRI evaluation is suggested, nonemergent unless otherwise clinically indicated. CTA: The thoracic and abdominal aorta demonstrate no CT evidence of dissection or aneurysm formation. No definite CT findings of acute pathology are identified. A 1 cm focus of arterial hyperenhancement is seen within the right hepatic lobe posteriorly. While this may be a benign finding characterization is limited on this exam which includes arterial phase imaging only. Additional evaluation utilizing contrast enhanced multiphase MRI is suggested. HOSPITAL COURSE: Date of Admission:09/21/17 Date of Discharge: 09/21/17 Prehospital course as per Dr. Joselo Viera Difficult to obtain clear hx from pt. pt was heavily. hx obtained from EMR chart review. Per pt, he was not feeling well last night. was experiencing sharp sudden CP w/ SOB, L sided weakness, and N/V which was non bloody. Pt's last drink was 2 days ago. He denied taking drugs today. Pupils non-pinpoint and Narcan was not given. Per Dr. Esquivel note: 52m with pmh of Mi in 2009 s/p stents in [facility], HTN, schizophrenia, CVA with residual left sided weakness, abuse of etoh, cocaine and marijuana currently getting Alcohol Detox at [facility], found slurring his speech and extremely weak on the left side complaining of chest pain. Note from [facility]: Patient last night was c/o chest pain w/o relief from Mylanta. Patient alert and oriented. C/o sharp mid-sternal chest pain w/o radiation. States also having SOB. Lungs CTA. R: 18; Heart rate-regular rhythm at 76. Murmur noted. EKG indicates ST changes. B/P: 138.60; T: 97.5; Hx: old DE and angioplasty in 2009, asthma, HTN, and CVA w/ residual effects of (L) arm weakness w/ mild contracture of hand. Hx. Alcohol and cocaine use disorder. Patient informed of need for ER evaluation of chest pain. Patient to be transported by [facility] ER. Report given to Dr. Esquivel. Arrived non-responsive to sternal rub in the ED. Normal vital on monitor, with on/off responsive episodes. Denies taking drugs today. Pupils non-pinpoint. No narcan given. 09/20/17 19:03 ER course was notable for: (1)Pt was alert in ambulance. In the ED became unresponsive and was noted to have minor hand twiches along w/ nystagmus. Was thought to be having seizure activity and was given dose of Ativan and Keppra. Hospital course Patient was admitted for altered mental status likely due to alcohol withdrawal seizures. Patient was day #4 of his librium detox protocol for alcohol withdrawal. There were concerns for withdrawal seizure. The initial head CT was negative. An MRI was recommended to further evaluate the possibility of stroke however the patient refused. Patient continues to insist he just wants to go back to [facility] for rehab. Patient also presented with elevated troponins, not associated with chest pain but possibly the result of cocaine use. Patient refused cardiac workup. Patient understood the risks associated with not completing workup. He stated he will follow up with a doctor once he completes inpatient rehab. Patient understands he can complete detox at [facility] and get the necessary testing but states he does not want it done here and wants to go to rehab. Patient will be discharged so that he may return to [facility]. Patient was discharged on Atorvastatin and thiamine and was advised to continue on his home medications. Minutes to complete discharge: 45 Discharge Summary Reason For Visit: ALCOHOL DEPENDENCE,ALCOHOL WITHDRAWL SEIZURE Current Active Problems Alcohol dependence (Acute) Alcohol dependence (Acute) Altered mental status (Acute) Cannabis dependence (Acute) Elevated troponin I level (Acute) Lethargy (Acute) Schizo-affective schizophrenia, chronic condition (Acute) Schizo-affective schizophrenia, chronic condition (Acute) Cocaine dependence (Chronic) Condition: Improved - Instructions Diet, Activity, Other Instructions: You came in from [facility] because you were having stroke-like symptoms CT scan of the head did not show signs of a stroke You did not want to do an MRI to confirm wether or not you had the stroke. You were experiencing some chest pain. This could have been related to your cocaine ingestion. The chest pain has since resolved as shown in the blood test. You also did not want to wait for further testing for your heart. It is recommended that you see a heart doctor once you complete rehab. If you do not have one then information on one has been provided You are being referred back to [facility] to resume your detox. You are being discharged on 2 new medications. Atorvastatin is used for high cholesterol. Thiamine is a vitamin. If you experience any worrisome symptoms, including chest pain, shortness of breath, fevers, please call 911 or return to the emergency room. Referrals: Luisa Vega MD [Staff Physician] - Fadi Flood MD [Staff Physician] - Disposition: TRANSFER ACUTE CARE/OTHER HOSP - Home Medications Comprehensive Discharge Medication List: Ambulatory Orders Albuterol Sulfate [Proventil HFA Inhaler -] 2 inh IH Q4H PRN #1 [email or web address] 04/21 Aspirin [ASA -] 81 mg PO DAILY #30 tab.chew 10/13/16 Lisinopril [Prinivil] 5 mg PO DAILY #30 tablet 10/13/16 Paroxetine HCl [Paxil -] 20 mg PO DAILY #30 tablet 03/04/17 Quetiapine Fumarate [Seroquel -] 200 mg PO HS #30 tab 03/04/17 Atorvastatin Ca [Lipitor] 10 mg PO HS #30 tablet 09/21/17 Thiamine HCl [Vitamin B1 -] 100 mg PO DAILY #30 tablet 09/21/17 This patient is new to me today: Yes Date on this admission: 09/22/17 Emergency Visit: Yes ED Registration Date: 09/21/17 Care time: The patient presented to the Emergency Department on the above date and was hospitalized for further evaluation of their emergent condition. Critical Care patient: No - Discharge Referral Referred to [facility] Med [facility] No
[2017-09-21] MEDS ORDERED: QUEtiapine FUMARATE 200 MG TABLET PO SCH (22:00)
[2017-09-21] MEDS ORDERED: ATORVASTATIN CA 10 MG TABLET (FP) PO SCH (22:00)
[2017-09-22] MEDS ORDERED: chlordiazePOXIDE HCL 25 MG CAPSULE PO SCH (05:00)
--- NOTE | 2017-09-22 15:24 | PDOC ---
Patient Follow-up (Call Back) - Post ED Follow - Up Condition at time of discharge: Improved Disposition at time of original discharge: LONG-TERM FACILITY Reason for Call Back: Abnwl. Microbiology (Received a phone call from lab at 1520 on 09/22 that patient had one positive blood culture. Pt had +gram cocci in clusters. Pt was transferred to [facility] and when I contacted their facility the patient was discharged today. Pt's nurse stated that he was afebrile the entire visit. I attempted to call the patient and there was no phone number, a certified letter will be sent out today in reference to BC results and appropriate follow up.)
[2017-09-23] MEDS ORDERED: chlordiazePOXIDE 5 MG CAPSULE PO SCH (05:00)
== END 2017-09-21 17:10 | disposition other institution (70) | DRG 52 ==
LOC: JER 17:48 → JERBED 09-21 00:20
PROVIDERS: ADMIT Internal Medicine; ATTEND Internal Medicine
PROC: HZ2ZZZZ Detoxification Services for Substance Abuse Treatment (ICD-10-PCS; principal; 2017-09-21)
DX: G92 Toxic encephalopathy (principal); F10.239 Alcohol dependence with withdrawal, unspecified; I10 Essential (primary) hypertension; I69.354 Hemiplegia and hemiparesis following cerebral infarction affecting left non-dominant side; R41.82 Altered mental status, unspecified; F14.20 Cocaine dependence, uncomplicated; F12.20 Cannabis dependence, uncomplicated; F25.8 Other schizoaffective disorders; R07.9 Chest pain, unspecified; E78.5 Hyperlipidemia, unspecified; G47.00 Insomnia, unspecified; F20.0 Paranoid schizophrenia; E88.09 Other disorders of plasma-protein metabolism, not elsewhere classified; R00.1 Bradycardia, unspecified; R53.83 Other fatigue; I25.10 Atherosclerotic heart disease of native coronary artery without angina pectoris; Z98.61 Coronary angioplasty status
CPT/HCPCS: 36415; 70450-TC; 71045-TC-FY; 71275-TC; 74170-TC; 80053; 80061; 80307; 81003; 82550; 82553; 83036; 83605; 83721; 83735; 84100; 84443; 84484; 85025; 85610; 85730; 87040; 87086; 87186; 93005; 93010; 93306-TC; 99284-25; J1644; J7030

== ENCOUNTER 2017-10-18 09:47 | Inpatient (IN) | payer OTHER ==
[2017-10-18 10:14] VITALS: BMI 23.6
--- NOTE | 2017-10-18 11:48 | HP ---
CIWA Score - CIWA Score Nausea/Vomitin Muscle Tremors: 3 Anxiety: 2 Agitation: 0-Normal Activity Paroxysmal Sweats: 2 Orientation: 0-Oriented Tacttile Disturbances: 0-None Auditory Disturbances: 0-None Visual Disturbances: 0-None Headache: 2-Mild CIWA-Ar Total Score: 12 Admission [facility] Chief Complaint: Patient presents with ETOH withdrawal symptoms and Cocaine/Marijuana dependence. Allergies/Adverse Reactions: Allergies Allergy/AdvReac Type Severity Reaction Status Date / Time Penicillins Allergy Severe Hives Verified 09/21/17 20:47 mri dye Allergy Severe Hives Uncoded 09/21/17 20:47 History of Present Illness: Patient presents with ETOH withdrawal symptoms and Cocaine/THC dependence. Patient states he began drinking and using cocaine at age 23. Patient drinks up to 2 pints of liquor and sniffs up to 40 dollars worth of cocaine daily. He also smokes 3-4 joints of Marijuana daily and last use of all substances last night. Patient denies any thoughts of SI/HI. Did attempt suicide 9 months ago. Last attempt at detox was last month here at [facility]. Patient states he left due to emergency but wants to do full treatment this time. PMH includes HTN, HLD, Depression/Schizophrenia, Asthma and +PPD. Exam Limitations: No Limitations - Ebola screening Have you traveled outside of the country in the last 21 days: No Have you had contact with anyone from an Ebola affected area: No Have you been sick,other than usual withdrawal symptoms: No Do you have a fever: No - Review of Systems Constitutional: Changes in sleep, Unexplained wgt Loss EENT: reports: No Symptoms Reported Respiratory: reports: No Symptoms reported Cardiac: reports: No Symptoms Reported GI: reports: Diarrhea, Nausea, Poor Fluid Intake, Abdominal cramping : reports: No Symptoms Reported Musculoskeletal: reports: No Symptoms Reported Integumentary: reports: Sweating Neuro: reports: Headache, Tremors Endocrine: reports: Unexplained Weight Loss Hematology: reports: No Symptoms Reported Psychiatric: reports: Orientated x3, Anxious, Depressed Patient History - Patient Medical History Hx Anemia: No Hx Asthma: Yes Hx Chronic Obstructive Pulmonary Disease (COPD): No Hx Cancer: No Hx Cardiac Disorders: Yes Hx Congestive Heart Failure: No Hx Hypertension: Yes Hx Hypercholesterolemia: Yes (no med) Hx Pacemaker: No HX Cerebrovascular Accident: No Hx Seizures: No Hx Dementia: No Hx Diabetes: No Hx Gastrointestinal Disorders: No Hx Liver Disease: No Hx Genitourinary Disorders: No Hx Sexually Transmitted Disorders: No Hx Renal Disease (ESRD): No Hx Thyroid Disease: No Hx Human Immunodeficiency Virus (HIV): No (LAST 2016 NEGATIVE) Hx Hepatitis C: No Hx Depression: Yes Hx Suicide Attempt: Yes (9 mths ago) Hx Bipolar Disorder: No Hx Schizophrenia: Yes - Patient Surgical History Past Surgical History: Yes Hx Neurologic Surgery: No Hx Cataract Extraction: No Hx Cardiac Surgery: Yes (OLD AL S/P ANGIOPLAST WITH STENT IN 2009) Hx Lung Surgery: No Hx Breast Surgery: No Hx Breast Biopsy: No Hx Abdominal Surgery: No Hx Appendectomy: No Hx Cholecystectomy: No Hx Genitourinary Surgery: No Hx Section: No Hx Orthopedic Surgery: Yes (left middle mcp jt surgery 2010) Other Surgical History: Left Hand Surgery 10 yrs. ago Anesthesia Reaction: No - PPD History Previous Implant?: Yes Documented Results: Negative w/o proof Implanted On Prior [facility] Admission?: Yes Date: 05/04/16 Results: POSITIVE PPD to be Administered?: No - Smoking Cessation Smoking history: Unknown if ever smoked Have you smoked in the past 12 months: Yes Aproximately how many cigarettes per day: 3 Cigars Per Day: 0 Hx Chewing Tobacco Use: No Initiated information on smoking cessation: Yes 'Breaking Loose' booklet given: 10/18/17 - Substance & Tx. History Hx Alcohol Use: Yes Hx Substance Use: Yes Substance Use Type: Alcohol, Cocaine, Marijuana Hx Substance Use Treatment: Yes - Substances Abused Alcohol Route: Oral Frequency: 3-6 times per week Amount used: 2 pts vodka Age of first use: 18 Date of Last Use: 10/17/17 Cocaine Frequency: 1-3 times last 30 days Amount used: $30 Age of first use: 23 Date of Last Use: 10/15/17 Family Disease History - Family Disease History Family Disease History: Diabetes: Father (), Mother (), Other: Father, Mother Admission Physical Exam S - Vital Signs Vital Signs: Vital Signs - 24 hr 10/18/17 10:11 Temperature 97.3 F L Pulse Rate 73 Respiratory 16 Rate Blood Pressure 138/61 Cleared for Admission [facility] - Detox or Rehab S Level of Care: Medically Managed Detox Regimen/Protocol: Librium S Breath Alcohol Content Breath Alcohol Content: 0 Urine Drug Screen - Results Drug Screen Negative: No Urine Drug Screen Results: THC-Marijuana, YVON-Cocaine, PCP-Phencyclidine
[2017-10-18] MEDS ORDERED: LOPERAMIDE HCL 2 MG CAPSULE PO PRN (11:58)
[2017-10-18] MEDS ORDERED: NICOTINE POLACRILEX 4 MG GUM BUC PRN (11:58)
[2017-10-18] MEDS ORDERED: ACETAMINOPHEN 325 MG TABLET (FP) PO PRN (11:58)
[2017-10-18] MEDS ORDERED: hydrOXYzine PAMOATE 50 MG CAPSULE (FP) PO PRN (11:58)
[2017-10-18] MEDS ORDERED: IBUPROFEN 400 MG TABLET (FP) PO PRN (11:58)
[2017-10-18] MEDS ORDERED: MAGNESIUM CITRATE 300 ML BOTTLE PO PRN (11:58)
[2017-10-18] MEDS ORDERED: MAG HYDROX/AL HYDROX/SIMETH 30 ML UNIT-DOSE CUP PO PRN (11:58)
[2017-10-18] MEDS ORDERED: P-EPHED 60MG/TRIPROLIDI 2.5MG TABLET PO PRN (11:58)
[2017-10-18] MEDS ORDERED: MAGNESIUM HYDROX 2400MG/30ML ORAL SUSPENSION 30 ML CUP PO PRN (11:58)
[2017-10-18] MEDS ORDERED: MENTHOL/PHENOL 1 EACH UD MM PRN (11:58)
[2017-10-18] MEDS ORDERED: guaiFENesin/D-METHORPHAN HB 10 ML UNIT-DOSE CUPS PO PRN (11:58)
[2017-10-18] MEDS ORDERED: chlordiazePOXIDE HCL 25 MG CAPSULE PO PRN (12:01)
[2017-10-18] MEDS ORDERED: ALBUTEROL SO4 8 GM HFA INHALER IH PRN (12:01)
[2017-10-18] MEDS ORDERED: chlordiazePOXIDE HCL 25 MG CAPSULE PO ONE (12:20)
--- NOTE | 2017-10-18 15:21 | CONSULT ---
[facility] Psychiatric Consult - Data Date of interview: 10/18/17 Admission source: [facility] Identifying data: This is 52 years old male, , living with family, unemployd , on SSD, with psychiatric hospitalization history, history of schizophrenia. Patient reports long history of Alcohol, Cocaine abuse/dependence , positive for PCVP and Cannabis as well. Substance Abuse History: Urine Drug Screen Results: THC-Marijuana, YVON-Cocaine, PCP-Phencyclidine. Smoking history: Unknown if ever smoked. Have you smoked in the past 12 months: Yes. Aproximately how many cigarettes per day: 3. Cigars Per Day: 0. Hx Chewing Tobacco Use: No. Initiated information on smoking cessation: Yes. 'Breaking Loose' booklet given: 10/18/17. - Substance & Tx. History. Hx Alcohol Use: Yes. Hx Substance Use: Yes. Substance Use Type : Alcohol, Cocaine, Marijuana. Hx Substance Use Treatment: Yes. - Substances Abused. Alcohol. Route: Oral. Frequency: 3-6 times per week. Amount used : 2 pts vodka. Age of first use: 18. Date of Last Use: 10/17/17. Cocaine. Frequency: 1-3 times last 30 days. Amount used: $30. Age of first use: 23. Date of Last Use: 10/15/17 Medical History: HTN Psychiatric History: Patient poor historian, as per computer carries Schizophrenia and currently on: Seroquel 200mg po qhs. Paxil 20mg popqd. As per computer has a history of Suicidal Attampt 9 months ago, patient denies it. , Patient reports no suicidal, homicidal history. Physical/Sexual Abuse/Trauma History: Denies Additional Comment: Urine Drug Screen Results: THC-Marijuana, YVON-Cocaine, PCP- Phencyclidine. Seroquel 200mg po qhs. Paxil 20mg popqd Mental Status Exam - Mental Status Exam Alert and Oriented to: Person Cognitive Function: Fair Patient Appearance: Unkempt Mood: Sad Affect: Flat Patient Behavior: Sedated Speech Pattern: Garbled Voice Loudness: Mildly Soft/Quiet, Moderately Soft/Quiet Thought Process: Circumstantial Thought Disorder: Being Controlled Hallucinations: Denies Suicidal Ideation: Denies Homicidal Ideation: Denies Insight/Judgement: Fair Sleep: Difficulty falling asleep Appetite: Fair Muscle strength/Tone: Mild Hypotonicity Gait/Station: Shuffling Additional Comments: Seroquel 200mg po qhs. Paxil 20mg popqd Psychiatric Findings - Problem List ([place] 1, 2,3) (1) Alcohol dependence with uncomplicated withdrawal Current Visit: Yes Status: Acute (2) Cannabis dependence Current Visit: Yes Status: Chronic (3) Cocaine dependence Current Visit: Yes Status: Chronic (4) Schizo-affective schizophrenia, chronic condition Current Visit: Yes Status: Chronic (5) Alcohol dependence Current Visit: No Status: Acute (6) Alcohol dependence Current Visit: No Status: Acute (7) Substance-induced sleep disorder Current Visit: No Status: Acute (8) Substance-induced sleep disorder Current Visit: No Status: Acute (9) Paranoid schizophrenia Current Visit: No Status: Chronic - Initial Treatment Plan Initial Treatment Plan: Seroquel 200mg po qhs. Paxil 20mg popqd
[2017-10-18 15:59] LABS: HEMATOCRIT 41.4 % (35.4-49); HEMOGLOBIN 13.6 GM/dL (11.7-16.9); MCH 30.4 pg (25.7-33.7); MCHC 32.8 g/dl (32.0-35.9); MEAN CELL VOLUME 92.6 fl (80-96); MEAN PLT VOLUME 8.8 fl (7.5-11.1); PLATELET COUNT 241 K/MM3 (134-434); RBC 4.48 M/mm3 (4.00-5.60); RDW 13.2 % (11.9-15.9); WHITE BLOOD COUNT 4.7 K/mm3 (4.0-10.0)
[2017-10-18 16:05] LABS: CHLORIDE 107 mmol/L (98-107); POTASSIUM 4.2 mmol/L (3.5-5.1); SODIUM 142 mmol/L (136-145)
[2017-10-18 16:20] LABS: ALBUMIN 3.6 g/dl (3.4-5.0); ALK PHOS 84 U/L (45-117); ANION GAP 5 (8-16); BILIRUBIN,TOTAL 0.3 mg/dL (0.2-1.0); BLOOD UREA NITROGEN 17 mg/dL (7-18); CO2 30 mmol/L (21-32); CREATININE 1.2 mg/dL (0.7-1.3); GLUCOSE,RANDOM 101 mg/dL (74-106); SGOT/AST 18 U/L (15-37); SGPT/ALT 22 U/L (12-78); TOT PROT 7.2 g/dl (6.4-8.2)
--- NOTE | 2017-10-18 16:47 | EKG ---
Test Reason : Blood Pressure : / mmHG Vent. Rate : 058 BPM Atrial Rate : 058 BPM P-R Int : 200 ms QRS Dur : 096 ms QT Int : 416 ms P-R-T Axes : 067 051 040 degrees QTc Int : 408 ms SINUS BRADYCARDIA NONSPECIFIC T WAVE ABNORMALITY ABNORMAL ECG WHEN COMPARED WITH ECG OF 21-SEP-2017 02:45, NO SIGNIFICANT CHANGE WAS FOUND Confirmed by TRUDY RUIZ MD ([id number]) on 10/18/2017 4:47:23 PM Referred By: Confirmed By:TRUDY RUIZ MD
[2017-10-18] MEDS: chlordiazePOXIDE HCL 25 MG CAPSULE PO SCH ×2 (17:50→22:18)
[2017-10-18] MEDS ORDERED: MELATONIN 5 MG TABLETS PO PRN (22:00)
[2017-10-18] MEDS: ATORVASTATIN CA 10 MG TABLET (FP) PO SCH (22:18)
[2017-10-18] MEDS: THIAMINE HCL 100 MG TABLET (FP) PO SCH (22:18)
[2017-10-18] MEDS: QUEtiapine FUMARATE 200 MG TABLET PO SCH (22:18)
[2017-10-19] MEDS: chlordiazePOXIDE HCL 25 MG CAPSULE PO SCH ×4 (07:04→22:10)
[2017-10-19] MEDS: PRENATAL VITAMINS W/ FOLIC ACID TABLET (FP) PO SCH (10:38)
[2017-10-19] MEDS: PARoxetine HCL 20 MG TABLET (FP) PO SCH (10:38)
[2017-10-19] MEDS: LISINOPRIL 5 MG TABLET (FP) PO SCH (10:39)
--- NOTE | 2017-10-19 14:39 | PN ---
S CIWA - CIWA Score Nausea/Vomitin Muscle Tremors: 3 Anxiety: 3 Agitation: 3 Paroxysmal Sweats: 1-Minimal Palms Moist Orientation: 0-Oriented Tacttile Disturbances: 1-Very Mild Itch/Numbness Auditory Disturbances: 1-Very Mild Visual Disturbances: 0-None Headache: 2-Mild CIWA-Ar Total Score: 17 S Progress Note (SOAP) Subjective: alert,irritable,anxious,interrupted sleep,tremor,pain in the body Objective: 10/19/17 14:36 Vital Signs Temperature 98.1 F 10/19/17 13:21 Pulse Rate 86 10/19/17 13:21 Respiratory Rate 16 10/19/17 13:21 Blood Pressure 113/62 10/19/17 13:21 O2 Sat by Pulse Oximetry (%) ekg sinus bradycardia,non specific t,rate 58/min no chest pain,no sob,no dizziness Laboratory Last Values WBC 4.7 K/mm3 (4.0-10.0) 10/18/17 12:00 RBC 4.48 M/mm3 (4.00-5.60) 10/18/17 12:00 Hgb 13.6 GM/dL (11.7-16.9) 10/18/17 12:00 Hct 41.4 % (35.4-49) 10/18/17 12:00 MCV 92.6 fl (80-96) 10/18/17 12:00 MCH 30.4 pg (25.7-33.7) 10/18/17 12:00 MCHC 32.8 g/dl (32.0-35.9) 10/18/17 12:00 RDW 13.2 % (11.9-15.9) 10/18/17 12:00 Plt Count 241 K/MM3 (134-434) 10/18/17 12:00 MPV 8.8 fl (7.5-11.1) 10/18/17 12:00 Sodium 142 mmol/L (136-145) 10/18/17 12:00 Potassium 4.2 mmol/L (3.5-5.1) 10/18/17 12:00 Chloride 107 mmol/L (98-107) 10/18/17 12:00 Carbon Dioxide 30 mmol/L (21-32) 10/18/17 12:00 Anion Gap 5 (8-16) L 10/18/17 12:00 BUN 17 mg/dL (7-18) 10/18/17 12:00 Creatinine 1.2 mg/dL (0.7-1.3) 10/18/17 12:00 Creat Clearance w eGFR > 60 (>60) 10/18/17 12:00 Random Glucose 101 mg/dL (74-106) 10/18/17 12:00 Calcium 9.0 mg/dL (8.5-10.1) 10/18/17 12:00 Total Bilirubin 0.3 mg/dL (0.2-1.0) 10/18/17 12:00 AST 18 U/L (15-37) 10/18/17 12:00 ALT 22 U/L (12-78) D 10/18/17 12:00 Alkaline Phosphatase 84 U/L (45-117) D 10/18/17 12:00 Total Protein 7.2 g/dl (6.4-8.2) 10/18/17 12:00 Albumin 3.6 g/dl (3.4-5.0) 10/18/17 12:00 RPR Titer Nonreactive (NONREACTIVE) 10/18/17 12:00 HIV 1&2 Antibody Screen Negative 10/18/17 11:00 HIV P24 Antigen Negative 10/18/17 11:00 Assessment: 10/19/17 14:38 withdrawal symptom Plan: continue detox
[2017-10-19 17:07] LABS: URINE APPEARANCE CLEAR; URINE BILIRUBIN NEGATIVE (<2.0 mg/dL); URINE COLOR LTYELLOW; URINE GLUCOSE (UA) NEGATIVE (NEGATIVE); URINE KETONE NEGATIVE (NEGATIVE); URINE LEUK ESTERASE NEGATIVE (NEGATIVE); URINE NITRITE NEGATIVE (NEGATIVE); URINE PROTEIN NEGATIVE (NEGATIVE); URINE UROBILINOGEN NEGATIVE mg/dL (0.2-1.0)
[2017-10-19] MEDS: QUEtiapine FUMARATE 200 MG TABLET PO SCH (22:10)
[2017-10-19] MEDS: ATORVASTATIN CA 10 MG TABLET (FP) PO SCH (22:10)
[2017-10-19] MEDS: THIAMINE HCL 100 MG TABLET (FP) PO SCH (22:10)
[2017-10-20] MEDS: chlordiazePOXIDE HCL 25 MG CAPSULE PO SCH ×2 (06:47→10:09)
[2017-10-20] MEDS: PRENATAL VITAMINS W/ FOLIC ACID TABLET (FP) PO SCH (10:09)
[2017-10-20] MEDS: PARoxetine HCL 20 MG TABLET (FP) PO SCH (10:09)
[2017-10-20] MEDS: LISINOPRIL 5 MG TABLET (FP) PO SCH (10:10)
--- NOTE | 2017-10-20 13:29 | PN ---
S CIWA - CIWA Score Nausea/Vomitin Muscle Tremors: 3 Anxiety: 2 Agitation: 2 Paroxysmal Sweats: 1-Minimal Palms Moist Orientation: 0-Oriented Tacttile Disturbances: 1-Very Mild Itch/Numbness Auditory Disturbances: 1-Very Mild Visual Disturbances: 0-None Headache: 2-Mild CIWA-Ar Total Score: 15 BHS Progress Note (SOAP) Subjective: alert,irritable,anxious,interrupted sleep Objective: 10/20/17 13:28 Vital Signs Temperature 97.2 F L 10/20/17 09:30 Pulse Rate 56 L 10/20/17 09:30 Respiratory Rate 18 10/20/17 09:30 Blood Pressure 115/60 10/20/17 09:30 O2 Sat by Pulse Oximetry (%) Assessment: 10/20/17 13:29 withdrawal symptom Plan: continue detox
[2017-10-20] MEDS: chlordiazePOXIDE 5 MG CAPSULE PO SCH ×2 (18:31→22:10)
[2017-10-20] MEDS: THIAMINE HCL 100 MG TABLET (FP) PO SCH (22:10)
[2017-10-20] MEDS: QUEtiapine FUMARATE 200 MG TABLET PO SCH (22:10)
[2017-10-20] MEDS: ATORVASTATIN CA 10 MG TABLET (FP) PO SCH (22:10)
[2017-10-21] MEDS: chlordiazePOXIDE 5 MG CAPSULE PO SCH ×2 (05:33→10:33)
[2017-10-21] MEDS: PARoxetine HCL 20 MG TABLET (FP) PO SCH (10:33)
[2017-10-21] MEDS: LISINOPRIL 5 MG TABLET (FP) PO SCH (10:33)
[2017-10-21] MEDS: PRENATAL VITAMINS W/ FOLIC ACID TABLET (FP) PO SCH (10:33)
--- NOTE | 2017-10-21 11:50 | PN ---
[facility] Progress Note (SOAP) Subjective: pt without complaints, says feeling OK Objective: 10/21/17 11:48 Vital Signs - 24 hr 10/20/17 10/20/17 10/20/17 15:01 18:48 22:31 Temperature 98.1 F 97.5 F L 98.1 F Pulse Rate 76 69 77 Respiratory 18 18 16 Rate Blood Pressure 112/52 103/54 130/69 10/21/17 10/21/17 10/21/17 00:30 03:30 07:18 Temperature 96.8 F L Pulse Rate 59 L Respiratory 18 18 18 Rate Blood Pressure 116/62 10/21/17 10:35 Temperature 97.7 F Pulse Rate 76 Respiratory 18 Rate Blood Pressure 111/62 Laboratory Tests 10/18/17 10/18/17 10/18/17 11:00 12:00 12:00 WBC 4.7 RBC 4.48 Hgb 13.6 Hct 41.4 MCV 92.6 MCH 30.4 MCHC 32.8 RDW 13.2 Plt Count 241 MPV 8.8 Sodium 142 Potassium 4.2 Chloride 107 Carbon Dioxide 30 Anion Gap 5 L BUN 17 Creatinine 1.2 Creat Clearance w eGFR > 60 Random Glucose 101 Calcium 9.0 Total Bilirubin 0.3 AST 18 ALT 22 D Alkaline Phosphatase 84 D Total Protein 7.2 Albumin 3.6 Urine Color Urine Appearance Urine pH Ur Specific [place] Urine Protein Urine Glucose (UA) Urine Ketones Urine Blood Urine Nitrite Urine Bilirubin Urine Urobilinogen Ur Leukocyte Esterase RPR Titer HIV 1&2 Antibody Screen Negative HIV P24 Antigen Negative 10/18/17 10/19/17 12:00 14:55 WBC RBC Hgb Hct MCV MCH MCHC RDW Plt Count MPV Sodium Potassium Chloride Carbon Dioxide Anion Gap BUN Creatinine Creat Clearance w eGFR Random Glucose Calcium Total Bilirubin AST ALT Alkaline Phosphatase Total Protein Albumin Urine Color Ltyellow Urine Appearance Clear Urine pH 7.0 Ur Specific [place] 1.016 Urine Protein Negative Urine Glucose (UA) Negative Urine Ketones Negative Urine Blood Negative Urine Nitrite Negative Urine Bilirubin Negative Urine Urobilinogen Negative Ur Leukocyte Esterase Negative RPR Titer Nonreactive HIV 1&2 Antibody Screen HIV P24 Antigen nl labs and VS Assessment: 10/21/17 11:49 Patient presented with ETOH withdrawal symptoms and Cocaine/Marijuana dependence - doing well on detox protocol. Plan: continue alcohol detox protocol
[2017-10-21 13:51] VITALS: BP 132/59; PULSE 80; TEMP 98.1
[2017-10-21] MEDS ORDERED: chlordiazePOXIDE HCL 10 MG CAPSULE PO SCH (17:00)
== END 2017-10-21 16:50 | disposition left against medical advice (07) | DRG 770 ==
LOC: YASAS 09:47 → Y6N 11:30
PROVIDERS: ADMIT Surgery; ATTEND Surgery
PROC: HZ2ZZZZ Detoxification Services for Substance Abuse Treatment (ICD-10-PCS; principal; 2017-10-18)
DX: F10.230 Alcohol dependence with withdrawal, uncomplicated (principal); F14.20 Cocaine dependence, uncomplicated; F12.20 Cannabis dependence, uncomplicated; F17.210 Nicotine dependence, cigarettes, uncomplicated; F25.9 Schizoaffective disorder, unspecified; F20.0 Paranoid schizophrenia; F19.282 Other psychoactive substance dependence with psychoactive substance-induced sleep disorder; I10 Essential (primary) hypertension; E78.5 Hyperlipidemia, unspecified; R76.11 Nonspecific reaction to tuberculin skin test without active tuberculosis; R00.1 Bradycardia, unspecified; I25.2 Old myocardial infarction; Z95.5 Presence of coronary angioplasty implant and graft; Z88.0 Allergy status to penicillin; Z91.041 Radiographic dye allergy status; Z91.5 Personal history of self-harm
CPT/HCPCS: 36415; 80053; 81003; 85027; 86593; 87389; 93005; 93010